=== PATIENT | female | born 1940 | race Two or more races ===

== ENCOUNTER 2022-06-04 21:16 | Inpatient (IN) | payer MEDICARE, OTHER ==
[~2022-06-04] VITALS: Ht 165.1 cm; Wt 51.7 kg
--- NOTE | 2022-06-04 21:47 | NUR ---
JOSÉ LUIS FROM [facility] C/O RIGHT HIP FRACTURE. PER PFACILITY UNKNOWN IF PT FELL. PT A/OX1; CONFUSED. TOELRATING R/A WELL WITH NO RESP DISTRESS. SAFETY MEASURES IN PLACE.
[2022-06-04] MEDS ORDERED: MORPHINE SULFATE INJ 2 MG/ML DISP.SYRIN ONE (22:19)
[2022-06-04] MEDS ORDERED: MORPHINE SULFATE INJ 2 MG/ML DISP.SYRIN IV ONE (22:30)
--- NOTE | 2022-06-04 22:39 | NUR ---
LFA #20G S/L BLOOD AND COVID ANTIGEN SWAB COLLECTED AND SENT TO LAB
[2022-06-04 22:59] LABS: BASOPHILS # (AUTO) 0.1 K/uL (0.0-0.2); BASOPHILS % (AUTO) 0.8 % (0.0-2.0); EOSINOPHILS % (AUTO) 4.7 % (0.0-6.0); HEMATOCRIT 38 % (33-45); HEMOGLOBIN 12.5 g/dL (11.5-14.8); LYMPHOCYTES % (AUTO) 13.8 % (20.0-44.0); MEAN CORPUSCULAR HGB CONC 34 g/dl (31.0-36.0); MEAN CORPUSCULAR VOLUME 91 fL (82-100); MONOCYTES # (AUTO) 0.5 K/uL (0.1-1.30); MONOCYTES % (AUTO) 6.2 % (2.0-12.0); NEUTROPHILS # (AUTO) 5.6 K/uL (1.8-8.9); NEUTROPHILS % (AUTO) 74.5 % (43.0-81.0); PLATELET COUNT (AUTO) 237 K/uL (150-450); RED BLOOD CELL COUNT(AUTO) 4.14 MIL/uL (4.0-5.2); WHITE BLOOD COUNT (AUTO) 7.6 K/uL (4.3-11.0)
[2022-06-04 23:04] LABS: CALCIUM, SERUM 8.9 mg/dL (8.5-10.1); CARBON DIOXIDE 27 mmol/L (21-32); CHLORIDE 110 mmol/L (98-107); CREATININE 1.4 mg/dL (0.6-1.3); GLUCOSE 115 mg/dL (74-106); POTASSIUM 3.5 mmol/L (3.5-5.1); SODIUM SERUM 145 mmol/L (136-145); UREA NITROGEN, BLOOD 44 mg/dL (7-18)
--- NOTE | 2022-06-04 23:28 | NUR ---
MECHANICAL FIELD ENGINEER AT PT'S BEDSIDE
--- NOTE | 2022-06-05 00:52 | NUR ---
CALLED ROYCE DAUGHTER [phone] AND LEFT VOICE MESSAGE.
--- NOTE | 2022-06-05 02:19 | NUR ---
PAGED DAWNA YANCEY AGAIN. PER GRISELDA, DR MOSS IS CLINICAL LIAISON AND HE DOES NOT RESPONDS CALL COLETTE MCDANIEL! ASSEMBLY AND PACKING SUPERVISOR AND ER MADE AWARE
[2022-06-05] MEDS ORDERED: ACETAMINOPHEN 325 MG TABLET PO PRN (03:00)
[2022-06-05] MEDS ORDERED: Z GUARD REMEDY 4 OZ OINT TP PRN (03:00)
[2022-06-05] MEDS ORDERED: MAGNESIUM HYDROXIDE 30 ML UDC PO PRN (03:00)
[2022-06-05] MEDS ORDERED: ONDANSETRON HCL/PF 4 MG/2 ML VIAL IVP PRN (03:00)
--- NOTE | 2022-06-05 03:20 | NUR ---
JOINT SETTER AT PT'S BEDSIDE
[2022-06-05] MEDS ORDERED: MORPHINE SULFATE INJ 2 MG/ML DISP.SYRIN ONE (03:39)
[2022-06-05] MEDS: MORPHINE SULFATE INJ 2 MG/ML DISP.SYRIN IV PRN ×2 (03:46→17:14)
[2022-06-05] MEDS ORDERED: METO-357 PO (03:57)
[2022-06-05] MEDS ORDERED: OLAN2.5T3 PO (03:57)
[2022-06-05] MEDS ORDERED: LISI40TA13 PO (03:57)
[2022-06-05] MEDS ORDERED: OLAN5TAB3 PO (03:57)
[2022-06-05] MEDS ORDERED: BUSP15TA3 PO (03:57)
[2022-06-05] MEDS ORDERED: BUSP5TAB3 PO (03:57)
[2022-06-05] MEDS ORDERED: OLAN10TA3 PO (03:57)
[2022-06-05] MEDS ORDERED: ACET-868 PO (07:20)
[2022-06-05] MEDS ORDERED: HYDR-4303 PO (07:20)
[2022-06-05] MEDS ORDERED: ENOX30DI5 SQ (07:20)
[2022-06-05] MEDS ORDERED: NA P133E RC (07:20)
[2022-06-05] MEDS ORDERED: LORA-259 PO (07:20)
[2022-06-05] MEDS ORDERED: PARO30TA4 PO (07:20)
[2022-06-05] MEDS ORDERED: BISA10SU11 RC (07:20)
[2022-06-05] MEDS ORDERED: MAGN400O6 PO (07:20)
[2022-06-05] MEDS ORDERED: ACET-2605 PO (07:20)
[2022-06-05] MEDS: PANTOPRAZOLE 40 MG TABLET.DR PO SCH (07:26)
--- NOTE | 2022-06-05 07:36 | NUR ---
CALLED DAWNA COLLAZO FOR BLOCK BREAKER , WILL CALL BACK.
--- NOTE | 2022-06-05 08:11 | NUR ---
SPOKE WITH DR. PASCUAL. PA WILL STOP BY AFTER NOON.
--- NOTE | 2022-06-05 08:54 | NUR ---
REPORT GIVEN TO BROOKE FOR AYALA
--- NOTE | 2022-06-05 09:08 | NUR ---
PT TRANSFERRED TO [facility] VIA GURNEY. WARM HANDOFF GIVEN TO RN ASSIGNED.
--- NOTE | 2022-06-05 10:55 | NUR ---
RN NOTE PT RECEIVED FROM ER. RECEIVED REPORT FROM HUMBLE FONSECA. WILL MONITOR.
[2022-06-05] MEDS: IV D5/0.45 NACL 1,000 ML IV PRN ×2 (11:11→22:40)
[2022-06-05 12:22] VITALS: BP 166/108
--- NOTE | 2022-06-05 15:41 | NUR ---
RN NOTE PT FAMILY REFUSED CONSENT FOR ORIF SX. PMD AND ORTHO AWARE.
--- NOTE | 2022-06-05 16:37 | NUR ---
RN NOTE URINE SPECIMEN COLLECTED VIA STERILE TECHNIQUE. CALLED LAB FOR P/U.
[2022-06-05 17:48] LABS: BILIRUBIN,URINE NEGATIVE (NEGATIVE); COLOR,URINE YELLOW (YELLOW); LEUKOCYTE ESTERASE ,URINE NEGATIVE (NEGATIVE); NITRITE, URINE NEGATIVE (NEGATIVE); PROTEIN,URINE 1+ mg/dl (NEGATIVE); UGLUCOSE TRACE mg/dL (NEGATIVE); UROBILINOGEN,URINE 0.2 EU/dL (0.2)
[2022-06-05 17:50] LABS: BACTERIA,URINE Rare /HPF (None Seen); RBC,URINE 0-2 /HPF (0-2); SQUAMOUS EPITHELIAL CELL,UR Few /HPF (None Seen); WBC,URINE 0-2 /HPF (0-3)
[2022-06-05 18:01] VITALS: BP 198/92
[2022-06-05] MEDS: hydrALAZINE HCL IV 20 MG VIAL IV PRN (18:32)
--- NOTE | 2022-06-05 18:41 | NUR ---
RN NOTE GOT PHONE CONSENT FOR SX ORIF, BLOOD TRANSFUSION, ANESTHESIA. CONFIRMED WITH SPRAY GUN REPAIRER NINO. PT RESTING IN BED, MEDICATED WITH PAIN WITH GOOD EFFECT. CONTINUES IN ROOM AIR. WITH IV ACCESS ON LFA G20, IVF RUNNING D5 1/2NS@75. PT ON NPO STATUS. DUE MEDICATIONS GIVEN. AM/PM CARE DONE. SAFETY AND HIP PRECAUTIONS FOLLOWED. WILL CONTINUE TO MONITOR.
--- NOTE | 2022-06-05 19:20 | NUR ---
MS RN NOTES PATIENT IS IN BED SLEEPING. PATIENT IS EASILY BEING WAKING UP. A/O X 1, CONFUSED. ACCESSED THE PT, PATIENT DENIES OF HAVING ANY PAIN CURRENTLY. IV ACCESS IS AT HER LEFT FA, #20 G, RUNNING D5 1/2NS @ 75 ML/HR. IV SITE IS PATENT AND INTACT. PATIENT IS ON RA, NO S/S OF SOB OR DISTRESS; TOLERATED WELL. ORIENTED PATIENT, AND PUT SAFETY MEASURES ARE IN PLACE: BED IN LOW POSITION, LOCKED; CALL MIRELES IS IN REACH; SIDE RAILS UP X 3. WILL MONITOR PATIENT'S CONDITION AND PROVIDE CARE FOR THE PATIENT.
[2022-06-05 20:00] VITALS: BP 164/119
[2022-06-05] MEDS: METOPROLOL SUCCINATE 50 MG TAB.SR.24H PO SCH (21:02)
[2022-06-05] MEDS: NITROGLYCERIN 30 GM TUBE TP SCH (21:05)
[2022-06-06] VITALS (17 sets, daily range): BP systolic 74–163; BP diastolic 45–128
[2022-06-06] MEDS: MORPHINE SULFATE INJ 2 MG/ML DISP.SYRIN IV PRN ×2 (06:08→12:43)
[2022-06-06] MEDS ORDERED: ANESTHESIA TRAY IN PYXIS 1 EA TRAY MC ONE (06:28)
[2022-06-06] MEDS ORDERED: POLYMYXIN B SULFATE 500,000 UNITS ONE (06:28)
[2022-06-06] MEDS ORDERED: BUPIVACAINE 0.25% 75 MG/30 ML VIAL ONE (06:29)
--- NOTE | 2022-06-06 06:42 | NUR ---
MS RN NOTES PATIETN WAS TAKEN TO OR IN BED. CHECK LISTS AND ALL DOCUMENTS WERE TAKEN WITH THEM. VITAL SIGNS WERE TAKEN. IV SITE IS PATENT AND INTACT.
[2022-06-06] MEDS ORDERED: TRANEXAMIC ACID 3,000 MG in SODIUM CHLORIDE IRRIG SOLUTION 70 ML IR ONE (07:00)
[2022-06-06] MEDS ORDERED: HYDROMORPHONE INJ 2 MG/ML DISP.SYRIN ONE (07:01)
[2022-06-06] MEDS ORDERED: ROCURONIUM BROMIDE 50 MG/5 ML ONE (07:02)
[2022-06-06 07:10] LABS: BASOPHILS % (AUTO) 0.5 % (0.0-2.0); EOSINOPHILS % (AUTO) 4.9 % (0.0-6.0); HEMATOCRIT 37 % (33-45); HEMOGLOBIN 12.1 g/dL (11.5-14.8); LYMPHOCYTES # (AUTO) 0.8 K/uL (0.8-4.8); LYMPHOCYTES % (AUTO) 13.1 % (20.0-44.0); MEAN CORPUSCULAR HGB CONC 33 g/dl (31.0-36.0); MEAN CORPUSCULAR VOLUME 93 fL (82-100); MONOCYTES # (AUTO) 0.7 K/uL (0.1-1.30); MONOCYTES % (AUTO) 11.7 % (2.0-12.0); NEUTROPHILS # (AUTO) 4.4 K/uL (1.8-8.9); NEUTROPHILS % (AUTO) 69.8 % (43.0-81.0); PLATELET COUNT (AUTO) 263 K/uL (150-450); RED BLOOD CELL COUNT(AUTO) 3.93 MIL/uL (4.0-5.2); WHITE BLOOD COUNT (AUTO) 6.2 K/uL (4.3-11.0)
--- NOTE | 2022-06-06 07:27 | NUR ---
MS RN OPENING NOTE PT NOT IN THE UNIT. RECEIVED REPORT FROM SECRETARY TO BOARD OF COMMISSIONERS NURSE, ALYSIA GAFFNEY RN. PT LEFT TO OR FOR SURGERY OF OPEN REDUCTION INTERNAL FIXATION OF RIGHT HIP FRACTURE WITH HEMIARTHROPLASTY.
[2022-06-06] MEDS: PANTOPRAZOLE 40 MG TABLET.DR PO SCH (07:30)
--- NOTE | 2022-06-06 07:38 | NUR ---
MS RN CLOSING NOTES PATIENT IS IN BED, AWAKE. A/O X 1, CONFUSED. IV ACCESS IS AT HER LEFT FA, #20 G. PATIENT'S IV SITE IS PATENT AND INTACT. PATIENT IS ON RA, NO S/S OF SOB OR DISTRESS; TOLERATED WELL. OR TOOK THE PATIENT FOR SURGERY AND LEFT UNIT AT 0640 THIS MORNING.
[2022-06-06 07:47] LABS: CALCIUM, SERUM 8.6 mg/dL (8.5-10.1); CARBON DIOXIDE 26 mmol/L (21-32); CREATININE 1.1 mg/dL (0.6-1.3); GLUCOSE 120 mg/dL (74-106); MAGNESIUM 2.3 mg/dL (1.8-2.4); PHOSPHORUS 2.9 mg/dL (2.5-4.9); UREA NITROGEN, BLOOD 34 mg/dL (7-18)
[2022-06-06 07:53] LABS: CHLORIDE 111 mmol/L (98-107); POTASSIUM 3.5 mmol/L (3.5-5.1); SODIUM SERUM 143 mmol/L (136-145)
--- NOTE | 2022-06-06 07:59 | NUR ---
RN NOTE PROTONIX MEDICATION SCHEDULED AT 0730 NOT GIVEN. PT IS STILL AT OR FOR SURGERY.
[2022-06-06] MEDS: METOPROLOL SUCCINATE 50 MG TAB.SR.24H PO SCH (09:00)
[2022-06-06] MEDS: NITROGLYCERIN 30 GM TUBE TP SCH ×2 (09:00→21:00)
[2022-06-06] MEDS ORDERED: ALBUTEROL HALF STRENGTH 1.25 MG/3 ML VIAL.NEB ONE (09:59)
[2022-06-06] MEDS ORDERED: HYDROCODONE/APAP 5/325MG TABLET PO PRN (10:00)
[2022-06-06] MEDS ORDERED: SENNOSIDES 8.6 MG TABLET PO PRN (10:00)
[2022-06-06] MEDS ORDERED: BISACODYL SUPP (10 MG) 10 MG/SUPP.RECT SUPP.RECT RC PRN (10:00)
[2022-06-06] MEDS ORDERED: ONDANSETRON HCL/PF 4 MG/2 ML VIAL IVP PRN (10:00)
[2022-06-06] MEDS: ENOXAPARIN SODIUM 30 MG/0.3 ML DISP.SYRIN SQ SCH (10:00)
[2022-06-06 10:59] LABS: HEMOGLOBIN 11.5 g/dL (11.5-14.8)
[2022-06-06] MEDS ORDERED: NALOXONE HCL 0.4 MG/ML AMPUL ONE (11:14)
[2022-06-06 11:39] LABS: ABG BASE EXCESS -6.1 mmol/L; ABG OXYGEN SATURATION 97.5 % (92.0-98.5); ABG PCO2 49.5 mmHg (35.0-45.0); ABG PH 7.249 (7.350-7.450); ABG PO2 119.9 mmHg (75.0-100.0); AaDO2 543.6 mmHg; COHb 0.4 % (0.5-1.5); MetHb 0.3 % (0.0-1.5); O2Hb 96.8 % (94.0-97.0); SITE, ABG Left Radial
[2022-06-06] MEDS: IPRATROPIUM NEB FS 0.5 MG/2.5 ML AMPUL.NEB NEB SCH ×4 (12:00→23:27)
--- NOTE | 2022-06-06 12:00 | NUR ---
RN NOTES PATIENT RECEIVED FROM PACU POST UP SURGERY RIGHT HIP HEMIARTHROPLASTY, ABDUCTION PILLOWS ON. PATIENT FULL CODE 24HR FOR SURGERY AND WILL BE DNR 11/0700AM. RT NEXT TO THE PATIENT TO SET UP CPAP AT THIS TIME PER DR PINK ORDER. GET POST UP ORDERS AND CARRIED OUT. APPLIED ICE ON RIGHT HIP, PATIENT CONFUSED TRYING TO REMOVE TUBING, APPLIED BILATERAL SOFT RESTRAIN, SKIN ASSESSMENT DONE, PICTURE TAKEN, PATIENT ON DIAPER, TURN PATIENT TO THE LEFT SIDE USING PILLOWS, RECHECKED PULSE ON DORSAL PEDIS IS PRESENT SKI WARM TO TOUCH. T-98.3F, BP-114/ 72, P-97, R-20. IV ACCESS ON RFA INTACT STARTED D5NS@75 ML/HR INTACT.
[2022-06-06] MEDS: IV D5/0.45 NACL 1,000 ML IV PRN (12:29)
--- NOTE | 2022-06-06 12:30 | NUR ---
RN NOTES PATIENT AWAKE, REMOVED CPAP AT THIS TIME VIA RT, PATIENT ON NC 2L SATURATION 92%. ABG WILL BE DONE WITHIN 2 HR PER MD ORDERS. WILL FOLLOW UP.
--- NOTE | 2022-06-06 12:40 | NUR ---
RN NOTE RECEIVED A CALL FROM ICU NURSE, HUMBLE BEARDEN. PER SULEIMAN, PT WAS TRANSFERRED IN THE ICU AFTER RIGHT HIP HEMIARTHROPLASTY SURGERY FOR MONITORING AT THIS TIME. REPORT GIVEN TO HER ABOUT THE PT.
--- NOTE | 2022-06-06 12:43 | NUR ---
PRN DILAUDID GIVEN FOR POST OP PAIN.
[2022-06-06] MEDS: ANCEF 1 GM/50 ML D5W IV SCH ×4 (14:13→21:45)
--- NOTE | 2022-06-06 14:16 | NUR ---
RN NOTES PATIENT GETTING ABG BLOOD DRAW AT THIS TIME. O2- 95%5L NC.
[2022-06-06 14:25] LABS: ABG BASE EXCESS -4.3 mmol/L; ABG OXYGEN SATURATION 92.4 % (92.0-98.5); ABG PCO2 53.5 mmHg (35.0-45.0); ABG PH 7.254 (7.350-7.450); ABG PO2 75.9 mmHg (75.0-100.0); AaDO2 147.8 mmHg; COHb 0.3 % (0.5-1.5); MetHb 0.4 % (0.0-1.5); O2Hb 91.8 % (94.0-97.0); SITE, ABG Right Radial; VENT MODE, BG 5L NC
--- NOTE | 2022-06-06 14:36 | NUR ---
RN NOTES PER ABG RESULT GET NEW ORDER VIA Dr FREITAS TO PUT BACK BIPAP DUE TO CO2 CORRECTING, BIPAP SETTING IS 15:5, RATE-18, FIO2-40%, ABG WITH 2 HR. ORDERS TAKEN AND CARRIED OUT.
[2022-06-06] MEDS: ALBUTEROL HALF STRENGTH 1.25 MG/3 ML VIAL.NEB NEB SCH ×3 (16:37→23:27)
[2022-06-06 17:12] LABS: ABG BASE EXCESS -4.9 mmol/L; ABG OXYGEN SATURATION 98.2 % (92.0-98.5); ABG PCO2 36.9 mmHg (35.0-45.0); ABG PH 7.354 (7.350-7.450); ABG PO2 135.8 mmHg (75.0-100.0); COHb 0.3 % (0.5-1.5); MetHb 0.2 % (0.0-1.5); O2Hb 97.7 % (94.0-97.0); SITE, ABG Right Radial; VENT MODE, BG ST 15
--- NOTE | 2022-06-06 17:20 | NUR ---
RN NOTES ACCORDING ABG RESULT CO2-36.9, PO2-135.8, CO3 -20.[address] FREITAS, AND GET NEW ORDER O2-2LNC, BIPAP USE FOR PRN, AND ABG 06/07/800. ORDER TAKEN AND CARRIED OUT.
--- NOTE | 2022-06-06 18:35 | NUR ---
rn notes pm care done, patient resting in the bed quietly, o2-90nc-4l, bp 104/ 51, p-93, infusing d5ns@75 ml/hr intact on LFA intact, assist turn and reposition q 2 hr. patient refused pain. call light within to reach, rechecked bilateral restrain for circulation, abduction pillow intact, applied ice on surgery area. posterior tibial pulse is present. endorsed oncoming nurse giovany.
[2022-06-06] MEDS ORDERED: NOREPINEPHRINE 8 MG in IV NS 0.9% 242 ML IV PRN (20:30)
--- NOTE | 2022-06-06 21:18 | NUR ---
TEACHER'S AIDE NITRO OINT NOT APPLIED. PT BLOOD PRESSURE LOW
--- NOTE | 2022-06-06 21:21 | NUR ---
DECORATIVE CUTTING MACHINE TENDER. INITIAL ASSESSMENT. RECEIVED THE PT REST IN BED. AWAKE. SLEEPY. VERY LETHARGIC. RECEIVED THE PT BP WAS LOW. IV INFILTRATED. OXYGEN 4L VIA NASAL CANNULA. SAT 98$. IV RT HAND 20G. LT HAND INFILTRATED. WINSTON WRIST SOFT RESTRAIN. HOB ELEVATED. GUEST SERVICE REPRESENTATIVE SHOWING NSR.
--- NOTE | 2022-06-06 21:29 | NUR ---
PLEAT TAPER. BLOOD PRESSURE LOW. LEVOPHED STARTED. MID LINE ORDER RECEIVED
[2022-06-07] VITALS (17 sets, daily range): BP systolic 135–173; BP diastolic 62–103
[2022-06-07] MEDS: ALBUTEROL HALF STRENGTH 1.25 MG/3 ML VIAL.NEB NEB SCH ×5 (03:12→20:38)
[2022-06-07] MEDS: IPRATROPIUM NEB FS 0.5 MG/2.5 ML AMPUL.NEB NEB SCH ×5 (03:13→20:38)
[2022-06-07 03:54] LABS: BASOPHILS % (AUTO) 0.1 % (0.0-2.0); EOSINOPHILS % (AUTO) 0.4 % (0.0-6.0); HEMATOCRIT 26 % (33-45); HEMOGLOBIN 8.7 g/dL (11.5-14.8); LYMPHOCYTES # (AUTO) 0.6 K/uL (0.8-4.8); LYMPHOCYTES % (AUTO) 6.8 % (20.0-44.0); MEAN CORPUSCULAR HGB CONC 34 g/dl (31.0-36.0); MEAN CORPUSCULAR VOLUME 93 fL (82-100); MONOCYTES # (AUTO) 0.7 K/uL (0.1-1.30); MONOCYTES % (AUTO) 7.5 % (2.0-12.0); NEUTROPHILS # (AUTO) 7.4 K/uL (1.8-8.9); NEUTROPHILS % (AUTO) 85.2 % (43.0-81.0); PLATELET COUNT (AUTO) 219 K/uL (150-450); RED BLOOD CELL COUNT(AUTO) 2.79 MIL/uL (4.0-5.2); WHITE BLOOD COUNT (AUTO) 8.7 K/uL (4.3-11.0)
[2022-06-07 04:10] LABS: ALANINE AMINOTRANSFERASE 10 U/L (12-78); ALKALINE PHOSPHATASE 46 U/L (46-116); ASPARTATE AMINOTRANSFERASE 21 U/L (15-37); BILIRUBIN,TOTAL 0.3 mg/dL (0.2-1.0); CALCIUM, SERUM 7.8 mg/dL (8.5-10.1); CARBON DIOXIDE 24 mmol/L (21-32); CHLORIDE 114 mmol/L (98-107); CREATININE 1.5 mg/dL (0.6-1.3); GLUCOSE 124 mg/dL (74-106); MAGNESIUM 1.8 mg/dL (1.8-2.4); PHOSPHORUS 2.8 mg/dL (2.5-4.9); POTASSIUM 3.6 mmol/L (3.5-5.1); SODIUM SERUM 145 mmol/L (136-145); TOTAL PROTEIN, SERUM 4.8 g/dL (6.4-8.2); UREA NITROGEN, BLOOD 39 mg/dL (7-18)
[2022-06-07] MEDS: IV D5/0.45 NACL 1,000 ML IV PRN ×2 (04:22→18:12)
--- NOTE | 2022-06-07 06:23 | NUR ---
rn neonatal icu. am care given. remaining same ivf running. hob elevated, iv lt upper arm mid line, ivf D51/2 NS @ 75 ML/H. TURN AND REPOSITION Q2H. WILL CONTINUE TO MONITOR VITALS.SURGICAL SITE NO BLEEDING NOTED.
--- NOTE | 2022-06-07 08:00 | NUR ---
ICU/RN PT IS RESTING ,ON 3L N/C ,SAT O2-95%.V/S STABLE AFEBRILE.NO PAIN REPORTED AT THIS TIME.PT IS OFF BI-PAP.IV INFUSING ORDERED.PT IS SECOND DAY POST OP RIGHT HIP FX.INCONTINENET IN DIAPER.POST OP WOUND DRY AND CLEAN.LABS REVIEW.PT IS CONFUSED,HAS DEMENTIA.SWALLOW EVAL DONE.REPOSITIONFOR COMFORT.
[2022-06-07 08:58] LABS: ABG BASE EXCESS -4.6 mmol/L; ABG OXYGEN SATURATION 96.3 % (92.0-98.5); ABG PCO2 25.3 mmHg (35.0-45.0); ABG PO2 83.9 mmHg (75.0-100.0); AaDO2 114.7 mmHg; COHb 0.3 % (0.5-1.5); MetHb 0.1 % (0.0-1.5); O2Hb 95.9 % (94.0-97.0); SITE, ABG Left Radial; VENT MODE, BG 3L NC
[2022-06-07] MEDS: METOPROLOL SUCCINATE 50 MG TAB.SR.24H PO SCH (09:08)
[2022-06-07] MEDS: PANTOPRAZOLE 40 MG TABLET.DR PO SCH (09:08)
[2022-06-07] MEDS: NITROGLYCERIN 30 GM TUBE TP SCH ×2 (09:09→21:50)
[2022-06-07] MEDS: ENOXAPARIN SODIUM 30 MG/0.3 ML DISP.SYRIN SQ SCH (09:12)
[2022-06-07] MEDS: hydrALAZINE HCL IV 20 MG VIAL IV PRN ×2 (15:08→23:02)
--- NOTE | 2022-06-07 17:25 | NUR ---
ICU/RN PT TRANSFER TO TELE UNIT.V/S STABLE,AFEBRILE.NO PAIN REPORTED AT THIS TIME.PM CARE PROVIDED. DUE MEDS ARE GIVEN ORDERED.
--- NOTE | 2022-06-07 17:30 | NUR ---
ADVISORY SERVICES ASSOCIATELANDSCAPE ENGINEER NOTES: RECEIVED PT FROM ICU STAFF. PT IS AWAKE, A/O X1. PT ON 3L 02, SAT 96%, NO S/S OF SOB OR ACUTE DISTRESS NOTED, DENIES PAIN AT THIS TIME. VITALS WNL. ABDUCTION PILLOW NOTED, S/P HIP HEMIARTHROPLASTY 06/06/2022. IV ACCESS @ OLYA MIDLINE # 18 RUNNING D5 1/2 NS@ 75ML HR. REORIENTED TO STAFF AND UNIT. SAFETY MEASURES IN PLACE, CALL LIGHT AND TABLE WITHIN REACH, WILL CONT TO ASSESS PT DURING SHIFT. Addendum: 06/07/22 at 1939 by DAREN ALBRIGHT RN TELE MONITOR READING SR 95
--- NOTE | 2022-06-07 19:10 | NUR ---
COTTON WRINGER OPENING NOTES RECEIVED PT IN BED, AWAKE AT THIS TIME. A/O X1, CONFUSED, RESPONDS TO NAME. ON O2 3 LPM VIA NC, WITH NO S/S OF SOB OR DISTRESS. ON TELE MONITOR READING SR, HR 93. IV ACCESS OLYA MIDLINE #18G INTACT AND PATENT, RUNNING D5 1/2 NS @ 75 ML/HR. B/L WRIST RESTRAINTS IN PLACE AND INTACT. SAFETY PRECAUTIONS IN PLACE: BED LOW AND IN LOCKED POSITION; SIDE RAILS UP X3; BED ALARM ON; CALL LIGHT WITHIN REACH. WILL CONTINUE TO MONITOR AND ASSIST.
--- NOTE | 2022-06-07 19:39 | NUR ---
VOCAL MUSIC INSTRUCTOR CLOSING NOTES: PT REMAINS STABLE, TELE SR 93, KEPT CLEAN, DRY AND COMFORTABLE, ENDORSED TO PM SHIFT.
--- NOTE | 2022-06-07 23:00 | NUR ---
RN NOTE PATIENT GIVEN HYDRALAZINE FOR BP 180/81
[2022-06-08] MEDS: IPRATROPIUM NEB FS 0.5 MG/2.5 ML AMPUL.NEB NEB SCH ×7 (00:01→23:32)
[2022-06-08] MEDS: ALBUTEROL HALF STRENGTH 1.25 MG/3 ML VIAL.NEB NEB SCH ×7 (00:02→23:32)
[2022-06-08] MEDS: hydrALAZINE HCL IV 20 MG VIAL IV PRN ×2 (05:57→15:50)
[2022-06-08] MEDS: IV D5/0.45 NACL 1,000 ML IV PRN ×2 (05:57→22:11)
--- NOTE | 2022-06-08 05:57 | NUR ---
REPEAT BP >160 SBP, HR 107. HYDRALAZINE GIVEN
[2022-06-08 06:57] LABS: BASOPHILS % (AUTO) 0.2 % (0.0-2.0); EOSINOPHILS % (AUTO) 0.2 % (0.0-6.0); HEMATOCRIT 30 % (33-45); HEMOGLOBIN 9.8 g/dL (11.5-14.8); LYMPHOCYTES # (AUTO) 0.6 K/uL (0.8-4.8); LYMPHOCYTES % (AUTO) 5.5 % (20.0-44.0); MEAN CORPUSCULAR HGB CONC 33 g/dl (31.0-36.0); MEAN CORPUSCULAR VOLUME 95 fL (82-100); MONOCYTES # (AUTO) 0.9 K/uL (0.1-1.30); MONOCYTES % (AUTO) 7.3 % (2.0-12.0); NEUTROPHILS # (AUTO) 10.2 K/uL (1.8-8.9); NEUTROPHILS % (AUTO) 86.8 % (43.0-81.0); PLATELET COUNT (AUTO) 244 K/uL (150-450); RED BLOOD CELL COUNT(AUTO) 3.09 MIL/uL (4.0-5.2); WHITE BLOOD COUNT (AUTO) 11.7 K/uL (4.3-11.0)
--- NOTE | 2022-06-08 07:30 | NUR ---
DELIVERY RN OPENING NOTES RECEIVED PT IN BED, AWAKE AT THIS TIME. A/O X1, CONFUSED, RESPONDS TO NAME. ON O2 3 LPM VIA NC, WITH NO S/S OF SOB OR DISTRESS. ON TELE MONITOR READING SR. IV ACCESS OLYA MIDLINE #18G INTACT AND PATENT, RUNNING D5 1/2 NS @ 75 ML/HR. B/L WRIST RESTRAINTS IN PLACE AND INTACT. SKIN CKECKS AND PATIENT CHECKS DONE EVERY 2 HOURS.ALL NEEDS ATTENDED.ALLSAFETY PRECAUTIONS IN PLACE: BED LOW AND IN LOCKED POSITION; SIDE RAILS UP X3; BED ALARM ON; CALL LIGHT WITHIN REACH. WILL CONTINUE TO MONITOR .
[2022-06-08 07:38] LABS: CALCIUM, SERUM 8.1 mg/dL (8.5-10.1); CARBON DIOXIDE 24 mmol/L (21-32); CHLORIDE 109 mmol/L (98-107); CREATININE 1.2 mg/dL (0.6-1.3); GLUCOSE 128 mg/dL (74-106); MAGNESIUM 1.8 mg/dL (1.8-2.4); PHOSPHORUS 2.3 mg/dL (2.5-4.9); SODIUM SERUM 141 mmol/L (136-145); UREA NITROGEN, BLOOD 26 mg/dL (7-18)
--- NOTE | 2022-06-08 07:42 | NUR ---
BOILERMAKER FITTER CLOSING NOTES PT IN BED, AWAKE AT THIS TIME. A/O X1, CONFUSED, RESPONDS TO NAME. STABLE ON O2 3 LPM VIA NC, WITH NO S/S OF SOB OR DISTRESS. ON TELE MONITOR READING SR, HR 93. IV ACCESS OLYA MIDLINE #18G INTACT AND PATENT, RUNNING D5 1/2 NS @ 75 ML/HR. B/L WRIST RESTRAINTS IN PLACE AND INTACT. ALL CARE PROVIDED AND ADMINISTERED MEDICATIONS TOLERATED WELL. SAFETY PRECAUTIONS IN PLACE: BED LOW AND IN LOCKED POSITION; SIDE RAILS UP X3; BED ALARM ON; CALL LIGHT WITHIN REACH. WILL ENDORSE AYALA TO EMPLOYEE COMMUNICATIONS INTERN NURSE.
[2022-06-08] MEDS: METOPROLOL SUCCINATE 50 MG TAB.SR.24H PO SCH (09:30)
[2022-06-08] MEDS: POTASSIUM CHLORIDE 20 MEQ TAB.PRT.SR PO SCH ×3 (09:30→11:58)
[2022-06-08] MEDS: NITROGLYCERIN 30 GM TUBE TP SCH ×2 (09:33→20:49)
[2022-06-08] MEDS: PANTOPRAZOLE 40 MG TABLET.DR PO SCH (09:35)
[2022-06-08 09:49] VITALS: BP 149/95
[2022-06-08] MEDS: NEUTRA PHOS 1 POWD.PACKET PO SCH ×2 (10:16→18:11)
[2022-06-08] MEDS: ENOXAPARIN SODIUM 30 MG/0.3 ML DISP.SYRIN SQ SCH (10:17)
[2022-06-08] MEDS: ENSURE ENLIVE 237 ML LIQUID (VANILLA) PO SCH ×2 (11:56→18:11)
--- NOTE | 2022-06-08 19:08 | NUR ---
RN OPENING: RECEIVED AWAKE ON BED, ON SEMI FOWLERS POSITION,WBAT-RLE, A/OX1 TO SELF ONLY WITH PERIODS OF CONFUSION AND FORGETFULNESS, BILATERAL SOFT RESTRAINT, MACEDONIAN SPEAKING,WITH O2 AT 3L/MIN VIA NC, ON TELE MONITOR A.FIB UNCONTROLLED 85, SINUS RHYTHM IN BETWEEN, , INCONTINENT/CONTINENT B/B, OLYA NICHOLS G#18, INTACT AND PATENT, WITH D5%1/2 NS AT 75 ML/HR, ABLE TO TAKE CRUSHED PILL, , K REPLACED IN THE MORNING, NON LABORED BREATHING, NO FACIAL GRIMACE, ORIENTED TO UNIT AND STAFF, KEPT CALL LIGHT WITHIN EASY REACH.
--- NOTE | 2022-06-08 19:30 | NUR ---
FIRE EQUIPMENT OPERATOR CLOSING NOTES PT IN BED, AWAKE AT THIS TIME. A/O X1, CONFUSED, RESPONDS TO NAME. ON O2 3 LPM VIA NC, WITH NO S/S OF SOB OR DISTRESS. ON TELE MONITOR READING SR. IV ACCESS OLYA MIDLINE #18G INTACT AND PATENT, RUNNING D5 1/2 NS @ 75 ML/HR. B/L WRIST RESTRAINTS IN PLACE AND INTACT. SKIN CHECKS AND PATIENT CHECKS DONE EVERY 2 HOURS.ALL NEEDS ATTENDED. ALL DUE MEDS GIVEN ORDERED.ALL SAFETY PRECAUTIONS IN PLACE: BED LOW AND IN LOCKED POSITION; SIDE RAILS UP X3; BED ALARM ON; CALL LIGHT WITHIN REACH. WILL ENDORSE FOR AYALA.
[2022-06-08 20:00] VITALS: BP 168/99
--- NOTE | 2022-06-08 20:15 | NUR ---
RN NOTES: BP RECHECKED-159/95
--- NOTE | 2022-06-08 22:12 | NUR ---
RN NOTES: IVF CONSUMED NEW BOTLLE OF D5%1/2 AT 75 ML/HR STARTED AT 2211, REPOSITIONED, ABDUCTION PILLOW IN PLACED.
[2022-06-09] VITALS (7 sets, daily range): BP systolic 126–176; BP diastolic 69–88
[2022-06-09] MEDS: hydrALAZINE HCL IV 20 MG VIAL IV PRN (00:15)
--- NOTE | 2022-06-09 00:16 | NUR ---
RN NOTES: BLOOD PRESSURE CHECKED 3X, BP-176/83, CN MADE AWARE, PRN APRESOLINE 10 MG IV GIVEN.
[2022-06-09] MEDS: IPRATROPIUM NEB FS 0.5 MG/2.5 ML AMPUL.NEB NEB SCH ×5 (03:58→20:12)
[2022-06-09] MEDS: ALBUTEROL HALF STRENGTH 1.25 MG/3 ML VIAL.NEB NEB SCH ×5 (03:58→20:12)
[2022-06-09] MEDS: ACETAMINOPHEN 325 MG TABLET PO PRN ×2 (04:37→10:36)
--- NOTE | 2022-06-09 04:44 | NUR ---
RN NOTES: 0430-BP CHECKED MANUALLY 140/90 0437 DURING REPOSITIONING NOTED WITH FACIAL GRIMACE, TYLENOL PRN FOR MILD PAIN GIVEN, VERY COOPERATIVE
--- NOTE | 2022-06-09 05:49 | NUR ---
RN NOTES: PLEASANT PERSONALITY NO AGGRESSIVE BEHAVIOR, MORNING CARE DONE, CLEAN AND CHANGE, REPOSITIONED, NEEDS ATTENDED.
[2022-06-09 06:18] LABS: BASOPHILS % (AUTO) 0.4 % (0.0-2.0); EOSINOPHILS % (AUTO) 1.2 % (0.0-6.0); HEMATOCRIT 27 % (33-45); HEMOGLOBIN 9.2 g/dL (11.5-14.8); LYMPHOCYTES # (AUTO) 0.7 K/uL (0.8-4.8); LYMPHOCYTES % (AUTO) 7.4 % (20.0-44.0); MEAN CORPUSCULAR HGB CONC 34 g/dl (31.0-36.0); MEAN CORPUSCULAR VOLUME 92 fL (82-100); MONOCYTES # (AUTO) 0.7 K/uL (0.1-1.30); MONOCYTES % (AUTO) 7.4 % (2.0-12.0); NEUTROPHILS # (AUTO) 7.9 K/uL (1.8-8.9); NEUTROPHILS % (AUTO) 83.6 % (43.0-81.0); PLATELET COUNT (AUTO) 234 K/uL (150-450); RED BLOOD CELL COUNT(AUTO) 2.96 MIL/uL (4.0-5.2); WHITE BLOOD COUNT (AUTO) 9.4 K/uL (4.3-11.0)
--- NOTE | 2022-06-09 06:35 | NUR ---
RN NOTES: ABLE TO SLEEP AND REST IN THE NIGHT, BP IS FLUCTUATING UP AND DOWN SAME WITH HR IRREGULAR, CHARGE NURSE NOTIFIED, HER RHYTHM CHANGES FROM SR TO UNCONTROLLED A.FIB -102, OLYA ML INTACT IVF D5%1/2NS AT 75 ML/HR ONGOING, FOR LABS THIS MORNING, NO PAIN OR DISCOMFORT, ON ABDUCTION PILLOW, CONTINUE TO MONITOR H/H, ON PAIN MANAGEMENT, POSTERIOR HIP PRECAUTION OBSERVE, NO HIP FLEXION<90 DEGREES, SHE VERBALIZED THIS MORNING SHE WANTS TO GO HOME, RN EXPLAINED TO HER WILL WAIT FOR THE DOCTOR TO SEE HER, SHE MIGHT BE DISCHARGE WE ARE NOT SURE, WE HAVE TO WAIT, SHE AGREED. -ENDORSED FOR CONTINUITY OF CARE
[2022-06-09 06:52] LABS: CALCIUM, SERUM 8.3 mg/dL (8.5-10.1); MAGNESIUM 1.8 mg/dL (1.8-2.4); PHOSPHORUS 3.3 mg/dL (2.5-4.9)
--- NOTE | 2022-06-09 07:10 | NUR ---
FORENSIC SPECIALIST OPENING NOTES RECEIVED PATIENT AWAKE IN BED, A/Ox1, EPISODES OF CONFUSION AND FORGETFULNESS. ON 3L O2, NO S/S OF RESPIRATORY DISTRESS. ON TELE MONITORING SHOWING A-FIB WITH PVCs HR 102. IV ACCES OLYA MIDLINE RUNNING D5 1/2 NS @ 75ML/HR. INTACT AND PATENT. INCONTINENT USES DIAPER. SKIN R HAND SKIN TEAR. HAS BILATERAL SOFT WRIST RESTRAINTS, CIRCULATION WNL, SKIN INTACT. SAFETY MEASURES IN PLACE: BED LOCKED AND IN LOWEST POSITION, SIDE RAILS UPx2, CALL LIGHT WITHIN REACH, HOB ELEVATED. WILL CONTINUE TO MONITOR.
[2022-06-09] MEDS: PANTOPRAZOLE 40 MG TABLET.DR PO SCH (08:23)
[2022-06-09] MEDS: NITROGLYCERIN 30 GM TUBE TP SCH ×2 (08:24→20:09)
[2022-06-09] MEDS: METOPROLOL SUCCINATE 50 MG TAB.SR.24H PO SCH (08:24)
[2022-06-09] MEDS: ENSURE ENLIVE 237 ML LIQUID (VANILLA) PO SCH ×3 (08:24→17:06)
[2022-06-09] MEDS: ENOXAPARIN SODIUM 30 MG/0.3 ML DISP.SYRIN SQ SCH (09:27)
--- NOTE | 2022-06-09 10:56 | NUR ---
RN NOTES PATIENT NOTED WITH OCCASIONAL GRIMACING AND WINCING, PRN TYLENOL ADMINISTERED. WILL CONTINUE TO MONITOR.
[2022-06-09] MEDS: IV D5/0.45 NACL 1,000 ML IV PRN (12:36)
--- NOTE | 2022-06-09 18:41 | NUR ---
ALUMINIZER CLOSING NOTES PATIENT AWAKE IN BED, A/Ox1, EPISODES OF CONFUSION AND FORGETFULNESS. STABLE ON 3L O2, NO S/S OF RESPIRATORY DISTRESS. ON TELE MONITORING SHOWING A-FIB WITH PVCs HR 102. IV ACCES OLYA MIDLINE RUNNING D5 1/2 NS @ 75ML/HR. INTACT AND PATENT. INCONTINENT USES DIAPER. SKIN R HAND SKIN TEAR. HAS BILATERAL SOFT WRIST RESTRAINTS, CIRCULATION WNL, SKIN INTACT. SAFETY MEASURES MAINTAINED: BED LOCKED AND IN LOWEST POSITION, SIDE RAILS UPx2, CALL LIGHT WITHIN REACH, HOB ELEVATED. WILL ENDORSE TO NEXT SHIFT ANY AYALA.
--- NOTE | 2022-06-09 20:00 | NUR ---
RECEIVED PATIENT IN BED, ALERT/ORIENTED X1, CONFUSED, ANXIOUS, CRYING, STABLE ON ROOM AIR, NO RESPIRATORY DISTRESS, BILATERAL WRIST RESTRAINTS, PULLING OUT IV LINE, IMPULSIVE, NOT AWARE OF SAFETY OF PRECAUTIONS. AFIB ON THE TELE, S/P RIGHT HIP ORIF, HIP ABDUCTOR IN PLACE, SCD PUMP, KEPT SAFE, BED ALARM, WILL CONTINUE TO MONITOR.
[2022-06-10] VITALS (8 sets, daily range): BP systolic 127–167; BP diastolic 58–101
[2022-06-10] MEDS: ALBUTEROL HALF STRENGTH 1.25 MG/3 ML VIAL.NEB NEB SCH ×6 (00:11→20:10)
[2022-06-10] MEDS: IPRATROPIUM NEB FS 0.5 MG/2.5 ML AMPUL.NEB NEB SCH ×6 (00:11→20:10)
[2022-06-10] MEDS: IV D5/0.45 NACL 1,000 ML IV PRN ×2 (02:28→17:09)
--- NOTE | 2022-06-10 06:41 | NUR ---
S/P RIGHT HIP ORIF 06/06/22. ALERT/ORIENTED X1, CONFUSED, STABLE ON ROOM AIR, NO COMPLAIN OF PAIN, DRESSING DRY AND INTACT, DENIES BLE NUMBNESS, HIP ABDUCTOR IN PLACE. BILATERAL WRIST RESTRAINTS, ACTIVELY PULLING OUT LINES. TANESHA MIDLINE D5 1/2 NS AT 75 ML/HR. INCONTINENT OF BOWEL AND BLADDER. CONTINUE HYDRATION, DVT PPX, ON LOVENOX, SCD PUMP, MONITOR LABS, CONTINUE PUREED DIET, PULMONARY FUNCTION TEST OUTPATIENT. WRIST RESTRAINTS MONITORING PER PROTOCOL
--- NOTE | 2022-06-10 07:10 | NUR ---
TAMALE MACHINE FEEDER OPENING NOTES RECEIVED PATIENT AWAKE IN BED, A/Ox1, EPISODES OF CONFUSION AND FORGETFULNESS. ON 3L O2, NO S/S OF RESPIRATORY DISTRESS. ON TELE MONITORING SHOWING SR W/ PACs HR 85. IV ACCES OLYA MIDLINE RUNNING D5 1/2 NS @ 75ML/HR. INTACT AND PATENT. INCONTINENT USES DIAPER. SKIN R HAND SKIN TEAR. HAS BILATERAL SOFT WRIST RESTRAINTS, CIRCULATION WNL, SKIN INTACT. SAFETY MEASURES IN PLACE: BED LOCKED AND IN LOWEST POSITION, SIDE RAILS UPx2, CALL LIGHT WITHIN REACH, HOB ELEVATED. WILL CONTINUE TO MONITOR.
[2022-06-10 07:11] LABS: RED BLOOD CELL COUNT(AUTO) 2.86 MIL/uL (4.0-5.2); WHITE BLOOD COUNT (AUTO) 6.7 K/uL (4.3-11.0)
[2022-06-10 07:12] LABS: BASOPHILS % (AUTO) 0.6 % (0.0-2.0); EOSINOPHILS % (AUTO) 4.3 % (0.0-6.0); HEMATOCRIT 26 % (33-45); LYMPHOCYTES # (AUTO) 0.6 K/uL (0.8-4.8); LYMPHOCYTES % (AUTO) 8.4 % (20.0-44.0); MEAN CORPUSCULAR HGB CONC 34 g/dl (31.0-36.0); MEAN CORPUSCULAR VOLUME 92 fL (82-100); MONOCYTES # (AUTO) 0.5 K/uL (0.1-1.30); MONOCYTES % (AUTO) 7.5 % (2.0-12.0); NEUTROPHILS # (AUTO) 5.3 K/uL (1.8-8.9); NEUTROPHILS % (AUTO) 79.2 % (43.0-81.0); PLATELET COUNT (AUTO) 271 K/uL (150-450)
[2022-06-10] MEDS: PANTOPRAZOLE 40 MG TABLET.DR PO SCH (08:28)
[2022-06-10] MEDS: METOPROLOL SUCCINATE 50 MG TAB.SR.24H PO SCH (08:31)
[2022-06-10] MEDS: NITROGLYCERIN 30 GM TUBE TP SCH ×2 (08:32→21:54)
[2022-06-10] MEDS: ENSURE ENLIVE 237 ML LIQUID (VANILLA) PO SCH ×3 (08:32→16:57)
[2022-06-10 08:53] LABS: CALCIUM, SERUM 8.2 mg/dL (8.5-10.1); CARBON DIOXIDE 22 mmol/L (21-32); GLUCOSE 96 mg/dL (74-106); MAGNESIUM 1.7 mg/dL (1.8-2.4); PHOSPHORUS 2.9 mg/dL (2.5-4.9); POTASSIUM 3.9 mmol/L (3.5-5.1); SODIUM SERUM 138 mmol/L (136-145); UREA NITROGEN, BLOOD 19 mg/dL (7-18)
[2022-06-10] MEDS: ENOXAPARIN SODIUM 30 MG/0.3 ML DISP.SYRIN SQ SCH (10:16)
[2022-06-10] MEDS: ACETAMINOPHEN 325 MG TABLET PO PRN (13:18)
[2022-06-10] MEDS: hydrALAZINE HCL IV 20 MG VIAL IV PRN (13:19)
--- NOTE | 2022-06-10 14:00 | NUR ---
RN NOTES PRN TYLENOL AND HYDRALAZINE ADMINISTERED FOR PAIN MANAGEMENT AND BP CONTROL. WILL CONTINUE TO MONITOR.
--- NOTE | 2022-06-10 18:54 | NUR ---
CLIENT SERVICES DIRECTOR CLOSING NOTES ATIENT AWAKE IN BED, A/Ox1, EPISODES OF CONFUSION AND FORGETFULNESS. STABLE ON 3L O2, NO S/S OF RESPIRATORY DISTRESS. ON TELE MONITORING SHOWING SR HR 77. IV ACCES OLYA MIDLINE RUNNING D5 1/2 NS @ 75ML/HR. INTACT AND PATENT. INCONTINENT USES DIAPER. SKIN R HAND SKIN TEAR. HAS BILATERAL SOFT WRIST RESTRAINTS, CIRCULATION WNL, SKIN INTACT. SAFETY MEASURES MAINTAINED: BED LOCKED AND IN LOWEST POSITION, SIDE RAILS UPx2, CALL LIGHT WITHIN REACH, HOB ELEVATED. WILL ENDORSE TO NEXT SHIFT ANY AYALA.
--- NOTE | 2022-06-10 19:22 | NUR ---
POLICE RECORDS CLERK OPENING NOTES RECEIVED PT AWAKE IN BED, A/O X1 WITH EPISODES OF CONFUSION AND FORGETFULNESS, ASKING WHEN SHE CAN GO HOME. STATED TO PT THAT THERE ARE NO D/C ORDERS YET FROM MD. ON O2 3L VIA NC WITH NO S/S OF RESPIRATORY DISTRESS. ON TELE MONITORING SHOWING SR WITH PACs, HR 88. IV ACCES OLYA MIDLINE RUNNING D5 1/2 NS @ 75ML/HR. INTACT AND PATENT. SKIN ON R HAND NOTED WITH SKIN TEAR. HAS B/L SOFT WRIST RESTRAINTS, CIRCULATION WNL, SKIN INTACT. SAFETY MEASURES IN PLACE: BED LOCKED AND IN LOWEST POSITION, SIDE RAILS UPx2, CALL LIGHT WITHIN REACH, HOB ELEVATED. WILL CONTINUE TO MONITOR AND ASSIST.
--- NOTE | 2022-06-10 21:30 | NUR ---
RECHECKED BP NOW 157/86, AND TITRATED OXYGEN DOWN. PATIENT NOW ON ROOM AIR SATTING 96-97%.
[2022-06-11] MEDS: ALBUTEROL HALF STRENGTH 1.25 MG/3 ML VIAL.NEB NEB SCH ×7 (00:05→23:30)
[2022-06-11] MEDS: IPRATROPIUM NEB FS 0.5 MG/2.5 ML AMPUL.NEB NEB SCH ×7 (00:05→23:30)
[2022-06-11] MEDS: hydrALAZINE HCL IV 20 MG VIAL IV PRN ×2 (01:22→21:05)
[2022-06-11] MEDS: ACETAMINOPHEN 325 MG TABLET PO PRN (02:01)
--- NOTE | 2022-06-11 02:05 | NUR ---
RN NOTE PATIENT GIVEN TYLENOL FOR GENERALIZED PAIN, PATIENT RESTLESS.
[2022-06-11 02:22] VITALS: BP 166/92
--- NOTE | 2022-06-11 02:25 | NUR ---
BP RECHECKED, 166/92 NOW, DECREASED FROM LAST READING. HR 114. NOTIFIED MD IF ANY ADDITIONAL MEDS TO BE GIVEN SINCE BP STILL OVER 160, NO NEW ORDERS PER MD.
[2022-06-11 04:00] VITALS: BP 134/92
--- NOTE | 2022-06-11 07:20 | NUR ---
DESIGN PROJECT MANAGER CLOSING NOTES PT AWAKE IN BED, A/O X1 WITH EPISODES OF CONFUSION AND FORGETFULNESS. STABLE ON RA WITH NO S/S OF RESPIRATORY DISTRESS. ON TELE MONITOR SHOWING SR WITH PACs, HR 82. IV ACCES OLYA MIDLINE RUNNING D5 1/2 NS @ 75ML/HR. INTACT AND PATENT. SKIN ISSUES NOTED AND CARED FOR DURING SHIFT. HAS B/L SOFT WRIST RESTRAINTS, CIRCULATION WNL, SKIN INTACT. SAFETY MEASURES MAINTAINED: BED LOCKED AND IN LOWEST POSITION, SIDE RAILS UPx3, CALL LIGHT WITHIN REACH, HOB ELEVATED. WILL ENDORSES AYALA TO INFORMATION ASSURANCE ENGINEER NURSE.
[2022-06-11 07:22] LABS: BASOPHILS % (AUTO) 0.3 % (0.0-2.0); CALCIUM, SERUM 8.2 mg/dL (8.5-10.1); CREATININE 0.9 mg/dL (0.6-1.3); EOSINOPHILS % (AUTO) 2.8 % (0.0-6.0); HEMATOCRIT 29 % (33-45); HEMOGLOBIN 9.8 g/dL (11.5-14.8); LYMPHOCYTES # (AUTO) 0.8 K/uL (0.8-4.8); LYMPHOCYTES % (AUTO) 9.4 % (20.0-44.0); MEAN CORPUSCULAR HGB CONC 34 g/dl (31.0-36.0); MEAN CORPUSCULAR VOLUME 92 fL (82-100); MONOCYTES # (AUTO) 0.8 K/uL (0.1-1.30); MONOCYTES % (AUTO) 9.2 % (2.0-12.0); NEUTROPHILS # (AUTO) 6.5 K/uL (1.8-8.9); NEUTROPHILS % (AUTO) 78.3 % (43.0-81.0); PHOSPHORUS 3.2 mg/dL (2.5-4.9); PLATELET COUNT (AUTO) 364 K/uL (150-450); POTASSIUM 3.8 mmol/L (3.5-5.1); RED BLOOD CELL COUNT(AUTO) 3.11 MIL/uL (4.0-5.2); WHITE BLOOD COUNT (AUTO) 8.3 K/uL (4.3-11.0)
--- NOTE | 2022-06-11 07:23 | NUR ---
LEAN CONSULTANT OPENING NOTES RECEIVED PT AWAKE IN BED IN NO ACUTE SIGNS OF DISTRESS. HOB ELEVATED. A/O x1, VERBALLY RESPONSIVE, CONFUSED AND FORGETFUL. NO S/S OF PAIN OR ANY DISCOMFORTS OBSERVED AT THIS TIME. ON ROOM AIR, TOLERATING WELL WITH NO S/S OF RESPIRATORY DISTRESS NOTED. ON TELE MONITORING SHOWING NSR WITH PAC'S, HR 96 AT THIS TIME, NO C/O CARDIAC DISTRESS VOICED. MIDLINE ON OLYA INTACT WITH IVF OF D5 1/2 NS @ 75ML/HR INFUSING WELL. PT WITH B/L SOFT WRIST RESTRAINTS IN PLACE, CIRCULATIONS WNL AND SKIN INTACT. SAFETY MEASURES IN PLACE: BED LOCKED AND IN LOWEST POSITION, SIDE RAILS UP x3, HOB KEPT ELEVATED AND CALL LIGHT WITHIN REACH. WILL CONTINUE TO MONITOR PT ACCORDINGLY.
[2022-06-11 08:00] VITALS: BP 133/70
[2022-06-11 08:05] LABS: MAGNESIUM 1.7 mg/dL (1.8-2.4)
[2022-06-11] MEDS: ENSURE ENLIVE 237 ML LIQUID (VANILLA) PO SCH ×3 (08:10→17:27)
[2022-06-11] MEDS: PANTOPRAZOLE 40 MG TABLET.DR PO SCH (08:10)
[2022-06-11] MEDS: METOPROLOL SUCCINATE 50 MG TAB.SR.24H PO SCH (08:31)
[2022-06-11] MEDS: NITROGLYCERIN 30 GM TUBE TP SCH ×2 (08:31→21:06)
[2022-06-11] MEDS: ENOXAPARIN SODIUM 30 MG/0.3 ML DISP.SYRIN SQ SCH (10:06)
[2022-06-11] MEDS: Magnesium 1GM/D5W 100ML PREMIX 100 ML IV SCH ×2 (11:08→12:17)
[2022-06-11] MEDS ORDERED: IPRA0.2S9 NEB (12:03)
[2022-06-11] MEDS ORDERED: ALBU1.25 NEB (12:03)
[2022-06-11 16:00] VITALS: BP 100/55
--- NOTE | 2022-06-11 16:30 | NUR ---
RN NOTES CALLED LEONARDO, POLICE ARTIST IF PT WILL BE D/C'D TO [facility] TODAY. SHE STATED NOT TODAY, STILL AWAITING FOR INSURANCE AUTHORIZATION.
--- NOTE | 2022-06-11 19:07 | NUR ---
HOME STEREO EQUIPMENT INSTALLER CLOSING NOTES PT IN BED AWAKE AT THIS TIME. HOB ELEVATED. A/O x1, VERBALLY RESPONSIVE, CONFUSED AND FORGETFUL. ON ROOM AIR, TOLERATING WELL WITH NO S/S OF RESPIRATORY DISTRESS NOTED DURING SHIFT. ON TELE MONITORING SHOWING NSR WITH PAC'S, HR 97 AT THIS TIME, NO C/O CARDIAC DISTRESS VOICED DURING THE DAY. MIDLINE ON OLYA INTACT WITH IVF OF D5 1/2 NS @ 75ML/HR INFUSING WELL. ALL NEEDS AND CARE PROVIDED WELL. PT TURNED AND REPOSITIONED Q 2HRS. SAFETY MEASURES IN PLACE: BED LOCKED AND IN LOWEST POSITION, SIDE RAILS UP x3, HOB KEPT ELEVATED AND CALL LIGHT WITHIN REACH. ENDORSE AYALA TO NEWSPAPER LIBRARY MANAGER RN YUE.
--- NOTE | 2022-06-11 19:12 | NUR ---
ELECTRONIC SEMICONDUCTOR PROCESSOR OPENING NOTES RECEIVED PT IN BED, AWAKE AT THIS TIME. A/O x1, VERBALLY RESPONSIVE, CONFUSED AND FORGETFUL. ON RA, WITH NO S/S OF RESPIRATORY DISTRESS NOTED DURING SHIFT. ON TELE MONITORING SHOWING SR WITH PAC'S, HR 91 AT THIS TIME. NO C/O CARDIAC DISTRESS VOICED DURING THE DAY. IV ACCESS OLYA MIDLINE #20G, PATENT AND INTACT, RUNNING D5 1/2 NS @ 75ML/HR. SAFETY MEASURES IN PLACE: BED LOCKED AND IN LOWEST POSITION, SIDE RAILS UP x3, HOB KEPT ELEVATED AND CALL LIGHT WITHIN REACH. WILL CONTINUE TO MONITOR AND ASSIST.
[2022-06-11 20:00] VITALS: BP 174/78
[2022-06-11] MEDS: IV D5/0.45 NACL 1,000 ML IV PRN (21:59)
--- NOTE | 2022-06-11 22:05 | NUR ---
RN NOTE PT BP 174/78 @ 1. GIVEN PRN HYDRALAZINE 10MG/0.5ML PER MD ORDER. REASSESSED BP @ 2205 SHOWING 165/91.
[2022-06-11 22:15] VITALS: BP 165/91
[2022-06-12] VITALS: BP 164/89
[2022-06-12] MEDS: IPRATROPIUM NEB FS 0.5 MG/2.5 ML AMPUL.NEB NEB SCH ×6 (03:30→23:30)
[2022-06-12] MEDS: ALBUTEROL HALF STRENGTH 1.25 MG/3 ML VIAL.NEB NEB SCH ×6 (03:30→23:30)
[2022-06-12 04:00] VITALS: BP 147/85
[2022-06-12] MEDS ORDERED: QUETIAPINE FUMARATE 25 MG TABLET PO ONE (05:00)
--- NOTE | 2022-06-12 07:12 | NUR ---
TIMBER APPRAISER CLOSING NOTES PT IN BED, AWAKE AT THIS TIME. A/O x1, VERBALLY RESPONSIVE, CONFUSED AND FORGETFUL. STABLE ON RA, WITH NO S/S OF RESPIRATORY DISTRESS NOTED DURING SHIFT. ON TELE MONITORING SHOWING SINUS TACHY WITH PAC'S, HR 113 AT THIS TIME. NO C/O CARDIAC DISTRESS VOICED DURING THE DAY. PT RESTLESS ALL SHIFT, DISROBING AND DISCONNECTING TELE MONITOR. NOTIFIED AND ORDERED SEROQUEL 12.5MG PO ONCE. IV ACCESS OLYA MIDLINE #20G, PATENT AND INTACT, RUNNING D5 1/2 NS @ 75ML/HR. SAFETY MEASURES IN MAINTAINED: BED LOCKED AND IN LOWEST POSITION, SIDE RAILS UP x3, HOB KEPT ELEVATED AND CALL LIGHT WITHIN REACH. WILL ENDORSE AYALA TO SECURITY PATROL OFFICER NURSE.
--- NOTE | 2022-06-12 07:28 | NUR ---
SIMULATION TECHNICIAN OPENING NOTE RECEIVED PT AWAKE AND RESTING IN BED. PT A/O X1, CONFUSED, REORIENTED PT NEEDED. ON ROOM AIR, TOLERATING WELL. NO SOB NOTED. NOT IN ANY SIGN OF RESPIRATORY DISTRESS. ON TELE OPHTHALMOLOGIST RETINA SPECIALIST WITH CURRENT READING OF SINUS TACH WITH PJCS, HR 108. NO SIGNS OF CARDIAC DISTRESS NOTED AT THIS TIME. DR. GARZA AWARE OF CURRENT HEART READING. IV ACCESS IN TANESHA MIDLINE, INTACT AND PATENT WITH D5 1/2 NS INFUSING AT 75ML/HR. SAFETY MEASURES IN PLACE: BED IN LOWEST AND LOCKED POSITION, SIDE RAILS UPX2, BED ALARM ON, AND CALL LIGHT WITHIN REACH. WILL CONTINUE TO MONITOR PT.
[2022-06-12 08:13] LABS: ALANINE AMINOTRANSFERASE 13 U/L (12-78); ALBUMIN 2.2 g/dL (3.4-5.0); ALKALINE PHOSPHATASE 86 U/L (46-116); ASPARTATE AMINOTRANSFERASE 45 U/L (15-37); BILIRUBIN,TOTAL 0.6 mg/dL (0.2-1.0); CALCIUM, SERUM 8.4 mg/dL (8.5-10.1); CARBON DIOXIDE 22 mmol/L (21-32); CHLORIDE 103 mmol/L (98-107); CREATININE 0.9 mg/dL (0.6-1.3); GLUCOSE 113 mg/dL (74-106); MAGNESIUM 2.1 mg/dL (1.8-2.4); POTASSIUM 3.7 mmol/L (3.5-5.1); SODIUM SERUM 135 mmol/L (136-145); TOTAL PROTEIN, SERUM 5.9 g/dL (6.4-8.2); UREA NITROGEN, BLOOD 13 mg/dL (7-18)
[2022-06-12] MEDS: PANTOPRAZOLE 40 MG TABLET.DR PO SCH (08:20)
[2022-06-12] MEDS: METOPROLOL SUCCINATE 50 MG TAB.SR.24H PO SCH (08:20)
[2022-06-12] MEDS: ENSURE ENLIVE 237 ML LIQUID (VANILLA) PO SCH ×3 (08:57→18:05)
[2022-06-12] MEDS: ENOXAPARIN SODIUM 30 MG/0.3 ML DISP.SYRIN SQ SCH (09:29)
[2022-06-12] MEDS: NITROGLYCERIN 30 GM TUBE TP SCH ×2 (09:30→21:55)
--- NOTE | 2022-06-12 10:44 | NUR ---
WOUND CARE CONSULT: PT PRESENTS WITH AREAS OF SKIN DISCOLORATION AND DRY LESIONS, AND RT HAND SKIN TEAR, PRESENT ON ADMISSION. Addendum: 06/12/22 at 1049 by DENISE LEPE WNDNU DISCUSSED SKIN PROTECTION RECOMMENDATIONS WITH NURSING STAFF, INCLUDING PURE WICK FOR URINARY INCONTINENCE. IN AGREEMENT WITH PLAN OF CARE.
[2022-06-12 16:10] VITALS: BP 143/65
[2022-06-12] MEDS: IV D5/0.45 NACL 1,000 ML IV PRN (18:50)
--- NOTE | 2022-06-12 19:20 | NUR ---
IMPACT RETAIL SERVICE MERCHANDISER OPENING NOTE RECEIVED PT AWAKE AND RESTING IN BED. PT A/O X1, CONFUSED. ON RA, TOLERATING WELL. NO SOB NOTED. NOT IN ANY SIGN OF RESPIRATORY DISTRESS. NO SIGNS OF CARDIAC DISTRESS NOTED AT THIS TIME. IV ACCESS TANESHA MIDLINE, INTACT AND PATENT WITH D5 1/2 NS INFUSING AT 75ML/HR. SAFETY MEASURES IN PLACE: BED IN LOWEST AND LOCKED POSITION, SIDE RAILS UP X2, BED ALARM ON, CALL LIGHT WITHIN EASY REACH. WILL CONTINUE TO MONITOR AND ASSIST.
--- NOTE | 2022-06-12 19:56 | NUR ---
[address] POLICE OFFICER CLOSING NOTE PT AWAKE AND RESTING IN BED. PT A/O X1, CONFUSED, REORIENTED PT NEEDED. ON ROOM AIR, TOLERATING WELL. NO SOB NOTED. NOT IN ANY SIGN OF RESPIRATORY DISTRESS. PT REFUSED TO HAVE TELE BREAD ICER ON AND KEPT REMOVING LEADS. MD AWARE, TELE BOX REMOVED AT THIS TIME AND GAVE TO RADHA GEAR ROLLER. NO SIGNS OF CARDIAC DISTRESS NOTED AT THIS TIME. IV ACCESS IN TANESHA MIDLINE, INTACT AND PATENT WITH D5 1/2 NS INFUSING AT 75ML/HR. ALL NEEDS ATTENDED. KEPT CLEAN AND COMFORTABLE. SAFETY MEASURES IN PLACE: BED IN LOWEST AND LOCKED POSITION, SIDE RAILS UPX2, BED ALARM ON, AND CALL LIGHT WITHIN REACH. ENDORSED TO TIME STUDY STATISTICIAN NURSE FOR AYALA.
[2022-06-12 20:00] VITALS: BP 160/98
--- NOTE | 2022-06-12 21:15 | NUR ---
RN NOTE ASKED DR. MALONEY ABOUT ADMINISTERING ELIQUIS 5MG DUE FOR 2100. DR WAS INFORMED THAT PT STARTED BLEEDING PROFUSELY EARLIER WHEN DAY SHIFT NURSE TRIED TO START AN IV ACCESS BUT NO CURRENT BLEEDING, AND THAT PT HAS A SCHEDULED CT ANGIO HEART TOMORROW. DR RESPONDED THAT ITS OKAY TO GIVE.
[2022-06-13] MEDS: ALBUTEROL HALF STRENGTH 1.25 MG/3 ML VIAL.NEB NEB SCH ×5 (03:30→20:32)
[2022-06-13] MEDS: IPRATROPIUM NEB FS 0.5 MG/2.5 ML AMPUL.NEB NEB SCH ×5 (03:30→20:32)
--- NOTE | 2022-06-13 07:00 | NUR ---
COREMAKER MACHINE CLOSING NOTE PT AWAKE AND RESTING IN BED. A/O X1, CONFUSED. STABLE ON RA, TOLERATING WELL. NO SOB NOTED. NOT IN ANY SIGN OF RESPIRATORY DISTRESS. NO SIGNS OF CARDIAC DISTRESS NOTED AT THIS TIME. IV ACCESS TANESHA MIDLINE, INTACT AND PATENT WITH D5 1/2 NS INFUSING AT 75ML/HR. ALL CARE PROVIDED AND ADMINISTERED MEDICATIONS TOLERATED WELL. SAFETY MEASURES MAINTAINED: BED IN LOWEST AND LOCKED POSITION, SIDE RAILS UP X2, BED ALARM ON, CALL LIGHT WITHIN EASY REACH. WILL ENDORSE AYALA TO PLUMBING INSTRUCTOR NURSE.
--- NOTE | 2022-06-13 07:25 | NUR ---
GLOBAL CLIMATE CHANGE ANALYST OPENING NOTE RECEIVED PT AWAKE AND RESTING IN BED. PT A/O X1, CONFUSED, REORIENTED PT NEEDED. ON ROOM AIR, TOLERATING WELL. NO SOB NOTED. NOT IN ANY SIGN OF RESPIRATORY DISTRESS. PT STILL REFUSES THE TELE CONCRETE CRUSHER LOADER OPERATOR. TELE BOX STILL WITH THE LANE MARKER INSTALLER. IV ACCESS IN TANESHA MIDLINE, INTACT AND PATENT WITH D5 1/2 NS INFUSING AT 75ML/HR. SAFETY MEASURES IN PLACE: BED IN LOWEST AND LOCKED POSITION, SIDE RAILS UPX2, BED ALARM ON, AND CALL LIGHT WITHIN REACH. WILL CONTINUE TO MONITOR PT.
[2022-06-13 08:00] VITALS: BP 153/93
[2022-06-13] MEDS: ENSURE ENLIVE 237 ML LIQUID (VANILLA) PO SCH ×3 (08:19→17:06)
[2022-06-13] MEDS: PANTOPRAZOLE 40 MG TABLET.DR PO SCH (08:19)
[2022-06-13] MEDS: METOPROLOL SUCCINATE 50 MG TAB.SR.24H PO SCH (08:42)
[2022-06-13] MEDS: NITROGLYCERIN 30 GM TUBE TP SCH ×2 (08:45→20:53)
[2022-06-13] MEDS: ENOXAPARIN SODIUM 30 MG/0.3 ML DISP.SYRIN SQ SCH (09:36)
[2022-06-13] MEDS: IV D5/0.45 NACL 1,000 ML IV PRN (10:06)
[2022-06-13] MEDS: MORPHINE SULFATE INJ 2 MG/ML DISP.SYRIN IV PRN (15:28)
--- NOTE | 2022-06-13 15:30 | NUR ---
RN NOTE PT NOTED WITH EPISODES OF RESTLESSNESS AND IRRITABLE. PT IS ALSO CRYING AND STATED, "IT HURTS". CLARIFIED AND ASKED PT IF SHE IS IN PAIN. PER PT, "YES, IT HURTS". ASSESSED PT AND ASKED HER WHERE IS THE PAIN AND HOW BAD IS HER PAIN LEVEL. PT IS UNABLE TO SCALE THE PAIN LEVEL BUT PT STATED "IT REALLY HURTS" AND PUT HER HANDS ON HER RIGHT HIPS. MORPHINE 2MG IVP ADMINISTERED ORDERED PRN Q6HRS FOR SEVERE PAIN. WILL MONITOR AND REASSESS PT.
--- NOTE | 2022-06-13 18:32 | NUR ---
HOIST WORKER CLOSING NOTE PT AWAKE AND RESTING IN BED. PT A/O X1, CONFUSED, REORIENTED PT NEEDED. ON ROOM AIR, TOLERATING WELL. NO SOB NOTED. NOT IN ANY SIGN OF RESPIRATORY DISTRESS. PT STILL REFUSES THE TELE OPTICAL DISPENSER. TELE BOX STILL WITH THE PLASTIC PARTS FABRICATOR TRIMMER. IV ACCESS IN TANESHA MIDLINE, INTACT AND PATENT WITH D5 1/2 NS INFUSING AT 75ML/HR. ALL NEEDS ATTENDED. KEPT CLEAN AND COMFORTABLE. SAFETY MEASURES IN PLACE: BED IN LOWEST AND LOCKED POSITION, SIDE RAILS UPX2, BED ALARM ON, AND CALL LIGHT WITHIN REACH. WILL ENDORSE TO PBX TEACHER NURSE.
--- NOTE | 2022-06-13 19:24 | NUR ---
COIN TELLER OPENING NOTE PT AWAKE AND RESTING IN BED. PT A/O X1, CONFUSED, REORIENTED PT NEEDED. ON ROOM AIR, TOLERATING WELL. NO SOB NOTED. NOT IN ANY SIGN OF RESPIRATORY DISTRESS. IV ACCESS IN TANESHA MIDLINE, INTACT AND PATENT WITH D5 1/2 NS INFUSING AT 75ML/HR. ALL NEEDS ATTENDED. KEPT CLEAN AND COMFORTABLE AT ALL TIMES. SAFETY MEASURES IN PLACE: BED IN LOWEST AND LOCKED POSITION, SIDE RAILS UPX2, BED ALARM ON, AND CALL LIGHT WITHIN REACH.
[2022-06-13 20:00] VITALS: BP 139/80
[2022-06-14] MEDS: ALBUTEROL HALF STRENGTH 1.25 MG/3 ML VIAL.NEB NEB SCH ×7 (00:08→23:30)
[2022-06-14] MEDS: IPRATROPIUM NEB FS 0.5 MG/2.5 ML AMPUL.NEB NEB SCH ×7 (00:08→23:30)
--- NOTE | 2022-06-14 06:56 | NUR ---
METHANE GAS COLLECTION SYSTEM OPERATOR CLOSING NOTE PT AWAKE AND RESTING IN BED. PT A/O X1, CONFUSED, REORIENTED PT NEEDED. ON ROOM AIR, TOLERATING WELL. NO SOB NOTED. NOT IN ANY SIGN OF RESPIRATORY DISTRESS. IV ACCESS IN TANESHA MIDLINE, INTACT AND PATENT WITH D5 1/2 NS INFUSING AT 75ML/HR. ALL NEEDS ATTENDED. KEPT CLEAN AND COMFORTABLE AT ALL TIMES. SAFETY MEASURES IN PLACE: BED IN LOWEST AND LOCKED POSITION, SIDE RAILS UPX2, BED ALARM ON, AND CALL LIGHT WITHIN REACH. WILL ENDORSE CARE TO DAY SHIFT NURSE.
--- NOTE | 2022-06-14 07:25 | NUR ---
FRAME GATE MORTISER OPERATOR OPENING NOTE RECEIVED PT AWAKE AND RESTING IN BED. PT A/O X1, CONFUSED, REORIENTED PT NEEDED. ON ROOM AIR, TOLERATING WELL. NO SOB NOTED. NOT IN ANY SIGN OF RESPIRATORY DISTRESS. IV ACCESS IN TANESHA MIDLINE, INTACT AND PATENT WITH D5 1/2 NS INFUSING AT 75ML/HR. SAFETY MEASURES IN PLACE: BED IN LOWEST AND LOCKED POSITION, SIDE RAILS UPX2, BED ALARM ON, AND CALL LIGHT WITHIN REACH. WILL CONTINUE TO MONITOR PT.
[2022-06-14 08:00] VITALS: BP 161/97
[2022-06-14] MEDS: PANTOPRAZOLE 40 MG TABLET.DR PO SCH (08:11)
[2022-06-14] MEDS: ENSURE ENLIVE 237 ML LIQUID (VANILLA) PO SCH ×3 (08:11→17:10)
[2022-06-14] MEDS: METOPROLOL SUCCINATE 50 MG TAB.SR.24H PO SCH (08:39)
[2022-06-14] MEDS: NITROGLYCERIN 30 GM TUBE TP SCH ×2 (08:40→20:54)
[2022-06-14] MEDS: ENOXAPARIN SODIUM 30 MG/0.3 ML DISP.SYRIN SQ SCH (09:04)
--- NOTE | 2022-06-14 14:35 | NUR ---
Pt refused breathing tx @1130am
[2022-06-14] MEDS: IV D5/0.45 NACL 1,000 ML IV PRN (15:51)
[2022-06-14 16:00] VITALS: BP 169/109
--- NOTE | 2022-06-14 18:35 | NUR ---
MS RN CLOSING NOTE PT AWAKE AND RESTING IN BED. PT A/O X1, CONFUSED, REORIENTED PT NEEDED. ON ROOM AIR, TOLERATING WELL. NO SOB NOTED. NOT IN ANY SIGN OF RESPIRATORY DISTRESS. IV ACCESS IN TANESHA MIDLINE, INTACT AND PATENT WITH D5 1/2 NS INFUSING AT 75ML/HR. ALL NEEDS ATTENDED. KEPT CLEAN AND COMFORTABLE AT ALL TIMES. TURNED AND REPOSITIONED Q2HRS AND NEEDED. SAFETY MEASURES IN PLACE: BED IN LOWEST AND LOCKED POSITION, SIDE RAILS UPX2, BED ALARM ON, AND CALL LIGHT WITHIN REACH. WILL ENDORSE TO SENIOR JAVA SOFTWARE ENGINEER NURSE FOR AYALA.
--- NOTE | 2022-06-14 19:27 | NUR ---
MS RN OPENING NOTE PT AWAKE AND RESTING IN BED. PT A/O X1, CONFUSED, REORIENTED PT NEEDED. ON ROOM AIR, TOLERATING WELL. NO SOB NOTED. NOT IN ANY SIGN OF RESPIRATORY DISTRESS. IV ACCESS IN TANESHA MIDLINE, INTACT AND PATENT WITH D5 1/2 NS INFUSING AT 75ML/HR. ALL NEEDS ATTENDED. KEPT CLEAN AND COMFORTABLE AT ALL TIMES. TURNED AND REPOSITIONED Q2HRS AND NEEDED. SAFETY MEASURES IN PLACE: BED IN LOWEST AND LOCKED POSITION, SIDE RAILS UPX2, BED ALARM ON, AND CALL LIGHT WITHIN REACH.
[2022-06-14 20:00] VITALS: BP 148/112
[2022-06-15] MEDS: ALBUTEROL HALF STRENGTH 1.25 MG/3 ML VIAL.NEB NEB SCH ×6 (03:44→23:49)
[2022-06-15] MEDS: IPRATROPIUM NEB FS 0.5 MG/2.5 ML AMPUL.NEB NEB SCH ×6 (03:44→23:49)
--- NOTE | 2022-06-15 06:43 | NUR ---
MS RN CLOSING NOTE PT AWAKE AND RESTING IN BED. PT A/O X1, CONFUSED, REORIENTED PT NEEDED. ON ROOM AIR, TOLERATING WELL. NO SOB NOTED. NOT IN ANY SIGN OF RESPIRATORY DISTRESS. IV ACCESS IN TANESHA MIDLINE, INTACT AND PATENT WITH D5 1/2 NS INFUSING AT 75ML/HR. ALL NEEDS ATTENDED. KEPT CLEAN AND COMFORTABLE AT ALL TIMES. TURNED AND REPOSITIONED Q2HRS AND NEEDED. SAFETY MEASURES IN PLACE: BED IN LOWEST AND LOCKED POSITION, SIDE RAILS UPX2, BED ALARM ON, AND CALL LIGHT WITHIN REACH. WILL ENDORSE LUIS TO DAY SHIFT NURSE.
[2022-06-15 06:49] LABS: BASOPHILS % (AUTO) 0.2 % (0.0-2.0); EOSINOPHILS % (AUTO) 0.8 % (0.0-6.0); HEMATOCRIT 30 % (33-45); LYMPHOCYTES # (AUTO) 0.5 K/uL (0.8-4.8); LYMPHOCYTES % (AUTO) 8.2 % (20.0-44.0); MEAN CORPUSCULAR HGB CONC 21 g/dl (31.0-36.0); MEAN CORPUSCULAR VOLUME 95 fL (82-100); MONOCYTES # (AUTO) 0.5 K/uL (0.1-1.30); MONOCYTES % (AUTO) 8.6 % (2.0-12.0); NEUTROPHILS # (AUTO) 4.9 K/uL (1.8-8.9); NEUTROPHILS % (AUTO) 82.2 % (43.0-81.0); PLATELET COUNT (AUTO) 311 K/uL (150-450); RED BLOOD CELL COUNT(AUTO) 3.12 MIL/uL (4.0-5.2)
[2022-06-15 06:52] LABS: CALCIUM, SERUM 8.2 mg/dL (8.5-10.1); MAGNESIUM 1.7 mg/dL (1.8-2.4); PHOSPHORUS 2.8 mg/dL (2.5-4.9); POTASSIUM 3.1 mmol/L (3.5-5.1)
[2022-06-15 06:59] LABS: HEMOGLOBIN 6.1 g/dL (11.5-14.8)
--- NOTE | 2022-06-15 07:59 | NUR ---
RN MS NOTES PT IN BED, AWAKE, ALERT AND VERBALLY RESPONSIVE, NOT IN DISTRESS, NO SIGN OF PAIN, NOTED H/H OF 6.08/20, DR. MICHAEL APONTE INFORMED, AWAITING FOR ORDERS, KEPT PT COMFORTABLE, IV FLUIDS INFUSING WELL.
[2022-06-15 08:00] VITALS: BP 156/59
[2022-06-15 08:15] LABS: EOSINOPHILS % (MANUAL) 1 % (0-4); LYMPHOCYTES % (MANUAL) 8 % (16-48); MONOCYTES % (MANUAL) 6 % (0-11.0); NEUTROPHILS % (MANUAL) 85 (42-76)
[2022-06-15 08:19] LABS: HEMOGLOBIN 9.4 g/dL (11.5-14.8)
[2022-06-15] MEDS: PANTOPRAZOLE 40 MG TABLET.DR PO SCH (08:29)
[2022-06-15] MEDS: METOPROLOL SUCCINATE 50 MG TAB.SR.24H PO SCH (08:30)
[2022-06-15] MEDS: ENSURE ENLIVE 237 ML LIQUID (VANILLA) PO SCH ×3 (08:31→16:15)
[2022-06-15] MEDS: NITROGLYCERIN 30 GM TUBE TP SCH ×2 (08:47→21:11)
[2022-06-15] MEDS: ENOXAPARIN SODIUM 30 MG/0.3 ML DISP.SYRIN SQ SCH (10:02)
[2022-06-15] MEDS ORDERED: POTASSIUM CHLORIDE 20 MEQ POWDER PACKET PO SCH (12:00)
[2022-06-15] MEDS: POTASSIUM CL. PREMIX PERIPHER. 50 ML IV SCH ×2 (13:10→14:10)
[2022-06-15] MEDS: Magnesium 1GM/D5W 100ML PREMIX 100 ML IV SCH ×2 (15:19→16:20)
[2022-06-15 16:00] VITALS: BP 159/95
--- NOTE | 2022-06-15 18:10 | NUR ---
RN MS NOTES PT IN BED, ASLEEP, EASY TO AROUSE, ALERT TO SELF, WITH CONFUSION, NO SIGN OF PAIN OR DISTRESS, IV FLUIDS INFUSING WELL, ELECTROLYTES REPLACED, PM CARE PROVIDED, KEPT WARM AND COMFORTABLE IN BED.
--- NOTE | 2022-06-15 19:00 | NUR ---
MS RN OPENING NOTE PATIENT IS IN BED, AWAKE. A/O X1, ORENTATED TO HER NAME ONLY, CONFUSED, SHE IS ON ROOM AIR, TOLERATING WELL. NO S/S OF SOB OR DISTRESS . NO S/S OF HAVING PAIN. IV ACCESS IS AT HER TANESHA, MIDLINE, PATENT AND INTACT ; RUNNING WITH D5 1/2 NS @ 75ML/HR. TURNED AND REPOSITIONED Q2HRS AND NEEDED. SAFETY MEASURES IN PLACE: BED IN LOW AND LOCKED POSITION; SIDE RAILS UP X 3, BED ALARM ON, AND CALL LIGHT WITHIN REACH. WILL CONTINUE MONITORING THE PATIENT THROUGHOUT THE SHIFT.
[2022-06-15 20:00] VITALS: BP 108/66
--- NOTE | 2022-06-15 22:00 | NUR ---
CHECKED PATIENT'S BODY TEMPERATURE: 98.8 F AXILLARY. KEEP MONITORING
[2022-06-16] MEDS: IV D5/0.45 NACL 1,000 ML IV PRN ×2 (01:47→19:59)
[2022-06-16] MEDS: IPRATROPIUM NEB FS 0.5 MG/2.5 ML AMPUL.NEB NEB SCH ×6 (03:30→23:13)
[2022-06-16] MEDS: ALBUTEROL HALF STRENGTH 1.25 MG/3 ML VIAL.NEB NEB SCH ×6 (03:30→23:13)
[2022-06-16 07:04] LABS: ALBUMIN 1.9 g/dL (3.4-5.0); BILIRUBIN,TOTAL 0.8 mg/dL (0.2-1.0); CALCIUM, SERUM 7.8 mg/dL (8.5-10.1); MAGNESIUM 2.2 mg/dL (1.8-2.4); TOTAL PROTEIN, SERUM 5.7 g/dL (6.4-8.2)
--- NOTE | 2022-06-16 07:30 | NUR ---
MS RN OPENING NOTE PATIENT AWAKE AND RESTING IN BED. PT A/O X1, CONFUSED, REORIENTED PT NEEDED. ON ROOM AIR, TOLERATING WELL. NO SOB NOTED. NOT IN ANY SIGN OF RESPIRATORY DISTRESS. IV ACCESS IN TANESHA MIDLINE, INTACT AND PATENT WITH D5 1/2 NS INFUSING AT 75ML/HR. ALL NEEDS ATTENDED. KEPT CLEAN AND COMFORTABLE AT ALL TIMES. TURNED AND REPOSITIONED Q2HRS AND NEEDED. SAFETY MEASURES IN PLACE: BED IN LOWEST AND LOCKED POSITION, SIDE RAILS UPX2, BED ALARM ON, AND CALL LIGHT WITHIN REACH. WILL CONTINUE TO MONITOR CLOSELY.
--- NOTE | 2022-06-16 07:31 | NUR ---
MS RN CLOSING NOTE PATIENT IS IN BED SLEEPING. SHE IS ON ROOM AIR, TOLERATING WELL. NO S/S OF SOB OR DISTRESS . NO S/S OF HAVING PAIN. IV ACCESS IS AT HER L UA, MIDLINE, PATENT AND INTACT ; RUNNING WITH D5 1/2 NS @ 75ML/HR. TURNED AND REPOSITIONED Q2HRS AND NEEDED. THROUGHOUT THE SHIFTS, ALL MEDICATIONS HAVE BEEN GIVEN PER MD ORDERS. SAFETY MEASURES IN PLACE: BED IN LOW AND LOCKED POSITION; SIDE RAILS UP X 3, BED ALARM ON, AND CALL LIGHT WITHIN REACH. WILL ENDORSE NEXT SHIFT NURSE FOR CONTINUE PATIENT CARE.
[2022-06-16] MEDS: PANTOPRAZOLE 40 MG TABLET.DR PO SCH (07:44)
[2022-06-16 08:00] VITALS: BP 132/60
[2022-06-16] MEDS: ENSURE ENLIVE 237 ML LIQUID (VANILLA) PO SCH ×3 (08:02→16:40)
[2022-06-16] MEDS: ACETAMINOPHEN 325 MG TABLET PO PRN (08:25)
[2022-06-16] MEDS: METOPROLOL SUCCINATE 50 MG TAB.SR.24H PO SCH (08:26)
[2022-06-16] MEDS: NITROGLYCERIN 30 GM TUBE TP SCH ×2 (08:36→20:55)
[2022-06-16] MEDS: ENOXAPARIN SODIUM 30 MG/0.3 ML DISP.SYRIN SQ SCH (09:52)
[2022-06-16] MEDS ORDERED: POTASSIUM CHLORIDE 20 MEQ POWDER PACKET PO ONE (12:00)
[2022-06-16 16:00] VITALS: BP_SYST 106; BP_SYST 146; BP_DIAS 62; BP_DIAS 81
--- NOTE | 2022-06-16 18:51 | NUR ---
MS RN CLOSING NOTE PATIENT AWAKE AND RESTING IN BED. PT A/O X1, CONFUSED, REORIENTED PT NEEDED. ON ROOM AIR, TOLERATING WELL. NO SOB NOTED. NOT IN ANY SIGN OF RESPIRATORY DISTRESS. IV ACCESS IN TANESHA MIDLINE, INTACT AND PATENT WITH D5 1/2 NS INFUSING AT 75ML/HR. ALL NEEDS ATTENDED. ALL DUE MEDS GIVEN ORDERED.KEPT CLEAN AND COMFORTABLE AT ALL TIMES. TURNED AND REPOSITIONED Q2HRS AND NEEDED. SAFETY MEASURES IN PLACE: BED IN LOWEST AND LOCKED POSITION, SIDE RAILS UPX2, BED ALARM ON, AND CALL LIGHT WITHIN REACH. WILL ENDORSE FOR AYALA.
--- NOTE | 2022-06-16 19:10 | NUR ---
MS RN OPENING NOTE PATIENT IS IN BED, AWAKE. A/O X1, ORIENTATED TO HER NAME ONLY, CONFUSED, SHE IS ON ROOM AIR, TOLERATING WELL. NO S/S OF SOB OR DISTRESS . NO S/S OF HAVING PAIN. IV ACCESS IS AT HER LEFT UA, MIDLINE, PATENT AND INTACT ; RUNNING WITH D5 1/2 NS @ 75ML/HR. SAFETY MEASURES IN PLACE: BED IN LOW AND LOCKED POSITION; SIDE RAILS UP X 3, BED ALARM ON, AND CALL LIGHT WITHIN REACH. WILL CONTINUE MONITORING THE PATIENT THROUGHOUT THE SHIFT.
[2022-06-16 20:00] VITALS: BP 113/59
--- NOTE | 2022-06-16 20:49 | NUR ---
MS RN NOTE CHECKED PATIENT'S BLOOD PRESSURE AND HEART RATE MANUALLY BEFORE GIVING HER SCHEDULED MEDICATION: NITROL OINTMENT. BP IS: 110/61, HR IS 89 BPM.
--- NOTE | 2022-06-16 23:13 | NUR ---
RT PT refused neb tx at this time. HUMBLE Freitas informed.
[2022-06-17] MEDS: IPRATROPIUM NEB FS 0.5 MG/2.5 ML AMPUL.NEB NEB SCH ×6 (03:30→23:34)
[2022-06-17] MEDS: ALBUTEROL HALF STRENGTH 1.25 MG/3 ML VIAL.NEB NEB SCH ×6 (03:30→23:34)
[2022-06-17 07:00] VITALS: BP 153/75
--- NOTE | 2022-06-17 07:33 | NUR ---
MS RN CLOSING NOTE PATIENT IS IN BED SLEEPING. SHE IS ON ROOM AIR, TOLERATING WELL. NO S/S OF SOB OR DISTRESS . NO S/S OF HAVING PAIN. IV ACCESS IS AT HER LEFT UA, MIDLINE, PATENT AND INTACT ; RUNNING WITH D5 1/2 NS @ 75ML/HR. TURNED AND REPOSITIONED Q2HRS AND NEEDED. DRESSING HAS BEEN CHANGED; THE INCISION IS INTACT, NO SIGNS OF INFECTION. THROUGHOUT THE SHIFTS, ALL MEDICATIONS HAVE BEEN GIVEN PER MD ORDERS. SAFETY MEASURES IN PLACE: BED IN LOW AND LOCKED POSITION; SIDE RAILS UP X 3, BED ALARM ON, AND CALL LIGHT WITHIN REACH. WILL ENDORSE NEXT SHIFT NURSE FOR CONTINUE PATIENT CARE.
--- NOTE | 2022-06-17 07:49 | NUR ---
MS RN OPENING NOTE PATIENT IS IN BED, AWAKE. A/O X1, ORIENTATED TO HER NAME ONLY, CONFUSED, VERBALLY RESPONSIVE. SHE IS ON ROOM AIR, TOLERATING WELL. NO S/S OF SOB OR DISTRESS . NO S/S OF HAVING PAIN. LUNG SOUNDS ARE CLEAR TO AUSCULTATION. PT HAS POSITIVE BOWEL SOUNDS. IV ACCESS IS AT HER LEFT UA, MIDLINE, PATENT AND INTACT ; RUNNING WITH D5 1/2 NS @ 75ML/HR. SAFETY MEASURES IN PLACE: BED IN LOW AND LOCKED POSITION; SIDE RAILS UP X 3, BED ALARM ON, AND CALL LIGHT WITHIN REACH. WILL CONTINUE MONITORING THE PATIENT THROUGHOUT THE SHIFT.
[2022-06-17] MEDS: PANTOPRAZOLE 40 MG TABLET.DR PO SCH (08:19)
[2022-06-17] MEDS: ENSURE ENLIVE 237 ML LIQUID (VANILLA) PO SCH ×3 (08:22→17:18)
[2022-06-17] MEDS: IV D5/0.45 NACL 1,000 ML IV PRN ×2 (09:26→23:29)
[2022-06-17] MEDS: ENOXAPARIN SODIUM 30 MG/0.3 ML DISP.SYRIN SQ SCH (09:49)
[2022-06-17] MEDS: METOPROLOL SUCCINATE 50 MG TAB.SR.24H PO SCH (09:50)
[2022-06-17] MEDS: NITROGLYCERIN 30 GM TUBE TP SCH ×2 (09:52→20:34)
[2022-06-17 16:00] VITALS: BP 140/116
--- NOTE | 2022-06-17 18:23 | NUR ---
RN NOTE- PATIENT IS IN BED, ORIENTED NAME ONLY, CONFUSED, VERBALLY RESPONSIVE. SHE IS ON ROOM AIR, TOLERATING WELL. NO S/S OF SOB OR DISTRESS . NO S/S OF HAVING PAIN. LUNG SOUNDS ARE DIMINISHED TO AUSCULTATION. PT HAS POSITIVE BOWEL SOUNDS. IV ACCESS IS AT HER LEFT UA, MIDLINE, PATENT AND INTACT ; RUNNING WITH D5 1/2 NS @ 75ML/HR. FE DINNER. ATE 25%, REMOVES [place], SAFETY MEASURES IN PLACE: BED IN LOW AND LOCKED POSITION; SIDE RAILS UP X 3, BED ALARM ON, AND CALL LIGHT WITHIN REACH. WILL CONTINUE MONITORING .
[2022-06-17 20:25] VITALS: BP 162/75
[2022-06-18] MEDS: ALBUTEROL HALF STRENGTH 1.25 MG/3 ML VIAL.NEB NEB SCH ×4 (04:05→16:25)
[2022-06-18] MEDS: IPRATROPIUM NEB FS 0.5 MG/2.5 ML AMPUL.NEB NEB SCH ×4 (04:05→16:25)
--- NOTE | 2022-06-18 07:30 | NUR ---
MS RN CLOSING NOTE PATIENT IS IN BED, AWAKE. A/O X1, SHE IS STILL CONFUSED. SHE IS ON ROOM AIR, TOLERATING WELL. NO S/S OF SOB OR DISTRESS . NO S/S OF HAVING PAIN. IV ACCESS IS AT HER LEFT UA, MIDLINE, PATENT AND INTACT ; RUNNING WITH D5 1/2 NS @ 75ML/HR. DURING THE SHIFT, THE WOUND PICTURES HAVE BEEN TAKEN, DOCUMENTED, AND PUT IN PATIENT'S CHART. SAFETY MEASURES IN PLACE: BED IN LOW AND LOCKED POSITION; SIDE RAILS UP X 3, BED ALARM ON, AND CALL LIGHT WITHIN REACH. WILL ENDORSE NEXT SHIFT NURSE FOR CONTINUE PATIENT CARE.
--- NOTE | 2022-06-18 07:40 | NUR ---
RN OPENING NOTE PATIENT IS ASLEEP IN BED, EASILY AWAKEN. A/O X1, ORIENTATED TO HER NAME ONLY, CONFUSED, VERBALLY RESPONSIVE. SHE IS ON ROOM AIR, TOLERATING WELL. NO S/S OF SOB OR DISTRESS . NO S/S OF HAVING PAIN. LUNG SOUNDS ARE CLEAR TO AUSCULTATION. IV ACCESS IS AT HER LEFT UA, MIDLINE, PATENT AND INTACT ; RUNNING WITH D5 1/2 NS @ 75ML/HR. SAFETY MEASURES IN PLACE: BED IN LOWEST AND LOCKED POSITION; SIDE RAILS UP X 4, BED ALARM ON, AND CALL LIGHT WITHIN REACH. WILL CONTINUE MONITORING THE PATIENT THROUGHOUT THE SHIFT.
[2022-06-18] MEDS: PANTOPRAZOLE 40 MG TABLET.DR PO SCH (08:17)
[2022-06-18] MEDS: ENSURE ENLIVE 237 ML LIQUID (VANILLA) PO SCH ×2 (08:22→11:48)
[2022-06-18] MEDS: NITROGLYCERIN 30 GM TUBE TP SCH (08:23)
[2022-06-18] MEDS: METOPROLOL SUCCINATE 50 MG TAB.SR.24H PO SCH (08:24)
[2022-06-18 08:25] VITALS: BP 158/70
[2022-06-18] MEDS: ENOXAPARIN SODIUM 30 MG/0.3 ML DISP.SYRIN SQ SCH (10:31)
[2022-06-18 16:16] VITALS: BP 90/48
[2022-06-18] MEDS ORDERED: Potassium Chloride 20 MEQ in IV NS 0.9% 1,000 ML IV PRN (17:00)
--- NOTE | 2022-06-18 17:06 | NUR ---
HYDRAULICS TEACHER NOTE- PT DC AT THIS TIME TO [facility]. REPORT ATTEMPTED BUT NO RN ANSWERED. STAFF AT FACILITY AWARE OF PT RETURNING TO FACILITY AND WILL HAVE RN CALL THIS [facility] FOR REPORT. IV DC'D, ID [id number] REMOVED, ESCORTED OFF UNIT BY AMBULANCE STAFF/
== END 2022-06-18 16:59 | DRG 521 ==
LOC: ER 21:19 → TRANSITION 06-05 05:38 → MED 06-05 08:39 → ICU 06-06 12:07 → TELE 06-07 17:20 → MED 06-13 21:00
PROVIDERS: ADMIT Student in an Organized Health Care Education/Training Program; ATTEND Nurse Practitioner Acute Care
PROC: 0SRR0JZ Replacement of Right Hip Joint, Femoral Surface with Synthetic Substitute, Open Approach (ICD-10-PCS; principal; 2022-06-06)
PROC: 5A09357 Assistance with Respiratory Ventilation, Less than 24 Consecutive Hours, Continuous Positive Airway Pressure (ICD-10-PCS; 2022-06-06)
PROC: 05HC33Z Insertion of Infusion Device into Left Basilic Vein, Percutaneous Approach (ICD-10-PCS; 2022-06-06)
DX: S72.011A Unspecified intracapsular fracture of right femur, initial encounter for closed fracture (principal); E43 Unspecified severe protein-calorie malnutrition; J96.02 Acute respiratory failure with hypercapnia; J96.21 Acute and chronic respiratory failure with hypoxia; J96.22 Acute and chronic respiratory failure with hypercapnia; N17.0 Acute kidney failure with tubular necrosis; F03.94 Unspecified dementia, unspecified severity, with anxiety; D62 Acute posthemorrhagic anemia; E87.1 Hypo-osmolality and hyponatremia; F03.90 Unspecified dementia, unspecified severity, without behavioral disturbance, psychotic disturbance, mood disturbance, and anxiety; I10 Essential (primary) hypertension; Y92.9 Unspecified place or not applicable; Z79.899 Other long term (current) drug therapy; E78.5 Hyperlipidemia, unspecified; Z51.5 Encounter for palliative care; Z66 Do not resuscitate; J44.9 Chronic obstructive pulmonary disease, unspecified; F09 Unspecified mental disorder due to known physiological condition; D64.9 Anemia, unspecified; E87.6 Hypokalemia; E83.42 Hypomagnesemia; W06.XXXA Fall from bed, initial encounter; Z90.710 Acquired absence of both cervix and uterus; Z87.891 Personal history of nicotine dependence
CPT/HCPCS: 36415; 36600; 71045-TC; 73501; 73502; 80048-TC; 80053-TC; 81001; 82803-TC; 83735-TC; 84100-TC; 85025-TC; 85027-TC; 85610-TC; 87081-TC; 93307-TC; 93970-TC; 94760-TC; 94799-TC; 97110-TC; 97112-TC; 97116-TC; 97530-TC; 99082-TC; A4216; A4217; A6209; A6253; A6403; C1713; C1776; C9803; G0378; J0360; J0690; J1100; J1170; J1650; J1885; J2270; J2310; J2370; J2405; J2704; J2765; J3475; J3480; J3490; J7030; J7040; J7042; J7050; J7060